=== PATIENT | male | born 1930 | race Caucasian/White ===

== ENCOUNTER 2018-12-18 15:45 | Inpatient (IN) ==
[2018-12-18] MEDS ORDERED: NS 1,000 ML IV ONE ×2 (16:04→19:24)
[2018-12-18] MEDS ORDERED: TYLENOL PO ONE (16:04)
--- NOTE | 2018-12-18 16:17 | Diag Imaging Result Doc PS360 ---
EXAM: CT HEAD W/O CONTRAST INDICATION: AMS TECHNIQUE: This exam was performed using automated exposure control, adjustment of mA or kV according to patient size, and/or use of iterative reconstruction technique. COMPARISON: 03/25/2018 FINDINGS: There is stable diffuse brain atrophy and suggestion of mild white matter microangiopathy, stable. There is incidental coarse falcine calcification anteriorly, stable. There is no definite acute infarct given the limited sensitivity of CT versus MRI. There is no discrete intracranial mass, mass effect, or intracranial hemorrhage. The surrounding soft tissues and bony structures are essentially unremarkable. IMPRESSION: Stable chronic changes as described. No definite acute intracranial pathology. Electronically signed by Yunior Scott 12/18/2018 4:14 PM
--- NOTE | 2018-12-18 16:32 | Diag Imaging Result Doc PS360 ---
EXAM: CHEST-PORTABLE HISTORY: cough TECHNIQUE: Single view of the chest was performed portably. COMPARISON: None. FINDINGS: Limited portable study. There is cardiomegaly. The aorta is tortuous. There is mild vascular congestion. There may be small effusions. Suspect platelike atelectasis at the bases. No focal consolidation is appreciated. IMPRESSION: Limited study. Possible small effusions and basilar atelectasis. Vascular congestion. Electronically signed by Minnie Moreira 12/18/2018 4:30 PM
[2018-12-18 17:26] LABS: BASO# 0.02 X1000 (0.0-0.2); BASO% 0.2 % (0.0-0.8); EOS# 0.02 X1000 (0.0-0.7); EOS% 0.2 % (0.0-10.0); HEMATOCRIT 40.9 % (42.0-52.0); HEMOGLOBIN 13.2 g/dL (14.0-18.0); IMM GRAN# 0.04 X1000 (0.0-0.04); IMM GRAN% 0.3 % (0.0-0.5); LYMPH# 0.35 X1000 (1.2-3.4); LYMPH% 2.9 % (20.5-51.1); MCH 30.1 PG (27-31); MCHC 32.3 g/dL (33-37); MCV 93.4 FL (81-99); MONO# 0.76 X1000 (0.11-0.59); MONO% 6.3 % (1.7-9.3); MPV 11.2 FL (7.4-10.4); NEUT# 10.91 X1000 (1.4-6.5); NEUT% 90.1 % (42.2-75.2); PLT 153 X1000 (130-400); RBC 4.38 XMIL (4.7-6.1); RDW 13.2 % (11.5-14.5)
[2018-12-18 17:36] LABS: URINE SOURCE CLEAN CATCH
[2018-12-18 17:40] LABS: BILIRUBIN URINE NEGATIVE (NEGATIVE); BLOOD URINE MODERATE (NEGATIVE); COLOR YELLOW; GLUCOSE URINE NEGATIVE (NEGATIVE); KETONE URINE NEGATIVE (NEGATIVE); LEUKOCYTES URINE MODERATE (NEGATIVE); NITRITE URINE NEGATIVE (NEGATIVE); PROTEIN URINE 30 mg/dL (NEGATIVE); SP GRAVITY URINE 1.006; TURBIDITY URINE CLEAR (CLEAR); UROBILINOGEN URINE NORMAL (NORMAL)
[2018-12-18 17:43] LABS: UR EPITHELIAL CELLS <10 /HPF (<10); URINE BACTERIA NEGATIVE /HPF; URINE RBC 20-40 /HPF (<10); URINE WBC 20-40 /HPF (<10)
[2018-12-18 17:45] LABS: ALB/GLOB RATIO 1.4; ALBUMIN 3.5 g/dL (3.5-5.0); CALCIUM 9.1 mg/dL (8.8-10.2); CREATININE 1.7 mg/dL (0.7-1.2); POTASSIUM 3.8 mmol/L (3.5-5.1); TOTAL BILIRUBIN 0.3 mg/dL (0.20-1.00)
[2018-12-18 17:52] LABS: INR 2.85
[2018-12-18] MEDS ORDERED: ROCEPHIN 1 GM in NS 50 ML IV ONE (18:01)
[2018-12-18] MEDS ORDERED: MERREM 1 GM in NS 50 ML IV ONE (18:02)
[2018-12-18 18:13] LABS: URINE CASTS NONE SEEN; URINE CRYSTALS NONE SEEN; URINE SMALL ROUND CELLS NONE SEEN; URINE YEAST NONE SEEN
--- NOTE | 2018-12-18 18:17 | ED EKG INTERP ---
This chart was entered by Stephanie Walker Scribe, acting as scribe for Latonia Willett MD. EKG Interpretation - EKG Time of EKG reading by physician:: 17:59 EKG Read and Signed by:: Latonia Willett EKG Interpretation (*Must complete 3 of following elements*): Abnormal Rate: 74 Rhythm: sinus with 1st degree AV block [place]: normal QRS: RBB NE Interval: normal ST Wave: normal Attestation - Physician/ JACINTO Attestation Patient care was provided by Advanced Practice Provider:: No The physician spent face to face time with patient:: Yes Advanced Practice Provider documentation review:: Supervising physician onsite and consulted in the evaluation and care of this patient. The physician did have a face to face encounter with the patient. This chart was documented by the indicated scribe, (Stephanie Walker, [place]) and accurately reflects the services I performed and decisions made by me, Latonia Willett MD, as attested by the provider's signature.
--- NOTE | 2018-12-18 18:42 | PROVIDER DOCUMENTATION ---
This chart was entered by Eugenie Herrera Scribe, acting as scribe for Latonia Willett MD. HPI-Neurological Disorder - General Chief Complaint: SEPSIS ALERT - D Stated Complaint: AMS Time Seen by Provider: 12/18/18 16:09 Source: family (son), EMS Allergies/Adverse Reactions: Patient Allergies Allergy/AdvReac Type Severity Reaction Status Date / Time atorvastatin [From Lipitor] Allergy Unknown Verified 03/25/18 20:24 pioglitazone [From Actos] Allergy Unknown Verified 03/25/18 20:24 Sulfa (Sulfonamide Allergy ANAPHYLAXIS Verified 03/25/18 20:24 Antibiotics) codeine AdvReac VOMITING Verified 12/18/18 16:36 Home Medications: Home Medication List Medication Instructions Recorded Confirmed Last Taken Type Hydrocodone/APAP 5 mg/325 mg 1 tab PO Q6H PRN PRN #12 tab 03/25/18 Unknown Rx [[place]-5] Tamsulosin [Flomax] 0.4 mg PO DAILY 03/25/18 03/25/18 03/25/18 15:00 History - History of Present Illness-Neuro Nature of Presenting Problem: [id number] presents to ED by EMS cc AMS, confusion and trouble walking since this morning. EMS reports that the staff at assisted living where the pt resides told them that pt was at baseline around 2pm and ambulated fine this morning but then around 3:30pm he could no longer ambulate and seemed very confused. Pt son is at bedside and reports pt just finished ABT for a UTI. Pt has hx of Dementia, Afib and thyroid disease. Pt is nontoxic in appearance. Onset/Duration: reports: 1-3 hours ago Timing: reports: still present, constant Context: reports: fever Character of Altered Mental Status: reports: confused Any recent trauma/injury?: reports: none Character of Deficits: reports: decreased ability to stand Cognitive Baseline: alert but confused Gait Baseline: uses a walker Associated Symptoms: reports: trouble walking Similar Symptoms Previously?: No Recently seen or treated by another doctor?: No Review of Systems - Adult - REVIEW OF SYSTEMS - ADULT Constitutional: reports: see HPI, fever, fatique. denies: chills Eyes: reports: no symptoms reported Ears, Nose, Mouth & Throat: reports: no symptoms reported Cardiovascular: reports: no symptoms reported Respiratory: reports: no symptoms reported Gastrointestinal: reports: no symptoms reported Genitourinary: reports: no symptoms reported Musculoskeletal: reports: no symptoms reported Integumentary: reports: no symptoms reported Neurological: reports: see HPI, other (AMS) Psychiatric: reports: no symptoms reported Endocrine: reports: no symptoms reported Hematologic/Lymphatic: reports: no symptoms reported Allergic/Immunologic: reports: no symptoms reported All Other Systems: Reviewed and Negative Past History - Adult - PAST MEDICAL HISTORY-ADULT Review of Records: reports: Nursing Assessment Review, Medications Reviewed, Social history reviewed & non-contributory. Major Childhood Illnesses: reports: denies history Cardiovascular: reports: denies history Respiratory: reports: denies history Gastrointestinal: reports: denies history Obstetrical/Gynecological: reports: denies history Genitourinary: reports: denies history Musculoskeletal: reports: denies history Neurological: reports: denies history Endocrine/Immune: reports: denies history Other Conditions: reports: denies history - IMMUNIZATION STATUS Childhood Immunizations: See Nurse Assessment Flu Vaccine: See Nurse Assessment - FAMILY HISTORY Family History: reviewed, not pertinent - SOCIAL HISTORY Smoking: denies Physical Exam- Neurological - Physical Exam-Neuro Initial Vital Signs Reviewed: Yes General Appearance: appears well, alert, no apparent distress. negative: anxious, combative Eye Exam: bilateral eye: normal inspection, PERRL (2mm reactive) HENMT: normocephalic/atraumatic, moist mucous membranes, normal ENT inspection, TMs normal, pharynx normal. negative: angioedema, dental decay, hearing deficit Head Injury: no evidence of injury. negative: active bleeding, Chaudhry's Sign, contusions, ecchymosis, flap, lacerations, raccoon eyes, swelling, tenderness Neck: non-tender, full range of motion, supple, normal inspection. negative: Brudzinski's sign, carotid bruit, C-spine tenderness Respiratory: chest non-tender, lungs clear, normal breath sounds, no pleuratic chest pain, no respiratory distress, no accessory muscle use. negative: crackles, rales, rhonchi, stridor, wheezing Cardiovascular: normal peripheral pulses, regular rate, rhythm, no edema, no gallop, no JVD, no murmur. negative: bradycardia, tachycardia Abdominal Exam: normal bowel sounds, non tender, soft. negative: distended, guarding, rigid, rebound, tenderness Lymphatic: no adenopathy. 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 negative: facial droop, facial paresthesias, facial weakness Coordination/Gait: normal finger to nose, normal gait. negative: ABN nose to finger (R), ABN nose to finger (L) Motor/Sensory: no motor deficit, no sensory deficit, no pronator drift. 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 negative: facial droop, focal weakness Integumentary: normal color, normal turgor, warm/dry. negative: cyanosis, diaphoresis, erythema, jaundice Psych/Mental Status: negative: anxious, disheveled, depressed affect - Glascow Coma Scale Best Eye Response: (4) open spontaneously Best Motor Response: (6) obeys commands Progress - PLAN OF CARE/RESULTS Progress/Plan/Lab Results: Vital Signs - 8 hr 12/18/18 16:28 12/18/18 16:36 12/18/18 16:40 Temperature 102.9 F H Pulse Rate Respiratory Rate Blood Pressure O2 Sat by Pulse Oximetry 97 97 12/18/18 16:50 12/18/18 16:52 12/18/18 16:53 Temperature 102.9 F H Pulse Rate 89 88 88 Respiratory Rate 8 L 19 19 Blood Pressure 140/58 150/90 O2 Sat by Pulse Oximetry 96 97 97 12/18/18 17:00 12/18/18 17:03 12/18/18 17:10 Temperature Pulse Rate 88 90 87 Respiratory Rate 21 15 25 H Blood Pressure 150/65 O2 Sat by Pulse Oximetry 98 98 97 Laboratory Results - last 24 hr 12/18/18 12/18/18 12/18/18 16:24 16:28 16:28 WBC 12.10 H RBC 4.38 L Hgb 13.2 L Hct 40.9 L MCV 93.4 MCH 30.1 MCHC 32.3 L RDW Std Deviation 13.2 Plt Count 153 MPV 11.2 H Immature Gran % (Auto) 0.3 Neut % (Auto) 90.1 H Lymph % (Auto) 2.9 L [place] % (Auto) 6.3 Eos % (Auto) 0.2 Baso % (Auto) 0.2 Immature Gran # (Auto) 0.04 Neut # (Auto) 10.91 H Lymph # (Auto) 0.35 L [place] # (Auto) 0.76 H Eos # (Auto) 0.02 Baso # (Auto) 0.02 PT INR PTT (Actin FS) Sodium 140 Potassium 3.8 Chloride 102 Carbon Dioxide 23 L Anion Gap 15 BUN 33 H Creatinine 1.7 H Estimated GFR/1.73 m2 38 BUN/Creatinine Ratio 19 Glucose 191 H POC Glucose Calculated Osmolality 292 Calcium 9.1 Total Bilirubin 0.30 AST 16 ALT 14 Alkaline Phosphatase 119 Total Protein 6.0 L Albumin 3.5 Globulin 2.5 Albumin/Globulin Ratio 1.4 Plasma Lactate 2.0 Urine Source Urine Color Urine Turbidity Urine pH Ur Specific [place] Urine Protein Ur Glucose (Stick) Ur Ketones (Stick) Urine Blood Urine Nitrite Urine Bilirubin Urobilinogen Dipstick Urine Leukocytes Urine WBC (Auto) Urine RBC (Auto) U Epithel Cells (Auto) Urine Bacteria (Auto) Urine Crystals Small Round Cells Urine Casts Urine Yeast-like Cells 12/18/18 12/18/18 12/18/18 16:28 16:28 17:17 WBC RBC Hgb Hct MCV MCH MCHC RDW Std Deviation Plt Count MPV Immature Gran % (Auto) Neut % (Auto) Lymph % (Auto) [place] % (Auto) Eos % (Auto) Baso % (Auto) Immature Gran # (Auto) Neut # (Auto) Lymph # (Auto) [place] # (Auto) Eos # (Auto) Baso # (Auto) PT 32.0 H INR 2.85 PTT (Actin FS) 37.8 Sodium Potassium Chloride Carbon Dioxide Anion Gap BUN Creatinine Estimated GFR/1.73 m2 BUN/Creatinine Ratio Glucose POC Glucose Calculated Osmolality Calcium Total Bilirubin AST ALT Alkaline Phosphatase Total Protein Albumin Globulin Albumin/Globulin Ratio Plasma Lactate Urine Source CLEAN CATCH Urine Color YELLOW Urine Turbidity CLEAR Urine pH 5.0 Ur Specific [place] 1.006 Urine Protein 30 A Ur Glucose (Stick) NEGATIVE Ur Ketones (Stick) NEGATIVE Urine Blood MODERATE A Urine Nitrite NEGATIVE Urine Bilirubin NEGATIVE Urobilinogen Dipstick NORMAL Urine Leukocytes MODERATE A Urine WBC (Auto) 20-40 A Urine RBC (Auto) 20-40 A U Epithel Cells (Auto) <10 Urine Bacteria (Auto) NEGATIVE Urine Crystals NONE SEEN Small Round Cells NONE SEEN Urine Casts NONE SEEN Urine Yeast-like Cells NONE SEEN 12/18/18 17:27 WBC RBC Hgb Hct MCV MCH MCHC RDW Std Deviation Plt Count MPV Immature Gran % (Auto) Neut % (Auto) Lymph % (Auto) [place] % (Auto) Eos % (Auto) Baso % (Auto) Immature Gran # (Auto) Neut # (Auto) Lymph # (Auto) [place] # (Auto) Eos # (Auto) Baso # (Auto) PT INR PTT (Actin FS) Sodium Potassium Chloride Carbon Dioxide Anion Gap BUN Creatinine Estimated GFR/1.73 m2 BUN/Creatinine Ratio Glucose POC Glucose 153 H Calculated Osmolality Calcium Total Bilirubin AST ALT Alkaline Phosphatase Total Protein Albumin Globulin Albumin/Globulin Ratio Plasma Lactate Urine Source Urine Color Urine Turbidity Urine pH Ur Specific [place] Urine Protein Ur Glucose (Stick) Ur Ketones (Stick) Urine Blood Urine Nitrite Urine Bilirubin Urobilinogen Dipstick Urine Leukocytes Urine WBC (Auto) Urine RBC (Auto) U Epithel Cells (Auto) Urine Bacteria (Auto) Urine Crystals Small Round Cells Urine Casts Urine Yeast-like Cells Orders Category Date Time Status CHEST-PORTABLE [RAD] Stat Exams 12/18/18 16:[address] HEAD W/O CONTRAST [CT] Stat Exams 12/18/18 15:56 Completed BLOOD CULTURE [BLDCUL] Stat Lab 12/18/18 16:37 Ordered CBC WITH DIFF [HEME] Stat Lab 12/18/18 16:28 Completed COMPREHENSIVE METABOLIC PANEL [CHEM] Stat Lab 12/18/18 16:28 Completed LACTATE, PLASMA [CHEM] Stat Lab 12/18/18 16:24 Completed PROTIME WITH INR [COAG] Stat Lab 12/18/18 16:28 Completed PTT [COAG] Stat Lab 12/18/18 16:28 Completed UA NIMS W/REFLEX CULT [URINALYSIS] Stat Lab 12/18/18 17:17 Completed URINE CULTURE [RM] Routine Lab 12/18/18 18:36 Received URINE MANUAL MICROSCOPIC [URINALYSIS] Stat Lab 12/18/18 17:17 Completed 0.9% Sodium Chloride Inj [Ns] 1,000 ml Med 12/18/18 16:04 Discontinued IV Wide Open mls/hr Acetaminophen [Tylenol] Med 12/18/18 16:04 Discontinued 650 mg PO NOW ONE CefTRIAXONE [Rocephin] 1 gm Med 12/18/18 18:01 Discontinued 0.9% Sodium Chloride Inj [Ns] 50 ml IV NOW Meropenem [Merrem] 1 gm Med 12/18/18 18:02 Active 0.9% Sodium Chloride Inj [Ns] 50 ml IV NOW Pulse Oximetry Stat Oth 12/18/18 16:05 Active Result Diagrams: 12/18/18 16:28 12/18/18 16:28 - XRAY 1 XRAY: Bilateral XRAY Study: Chest Impression: See EMR Report (IMPRESSION: Limited study. Possible small effusions and basilar atelectasis. Vascular congestion. Electronically signed by Minnie Moreira 12/18/2018 4:30 PM) - CT/MRI 1 CT Study: Head Impression: See EMR Report (IMPRESSION: Stable chronic changes as described. No definite acute intracranial pathology. Electronically signed by Yunior Scott 12/18/2018 4:14 PM) - CONSULTS/PCP/HOSPITALIST Notification #1 *Consult/PCP/Hospitalist*: D/W ANIKA MORTENSEN Time Discussed: 18:00 Consult Disposition: Admit Departure - Departure Date of Disposition Decision: 12/18/18 Time of Disposition Decision: 18:00 DIAGNOSIS: UTI (urinary tract infection), Sepsis Disposition: ADMITTED INPATIENT 09 Certified Medical Emergency: Emergent Condition: Stable Additional Freetext Instructions: ED Follow Up Instructions: You have been treated by a care provider in the Emergency Department. These instructions are being provided to you so you can have an understanding of how to care for yourself upon discharge. Upon discharge from the Emergency Department, you are responsible for making arrangements for follow-up care by a physician of your choice. Take all prescribed medications as directed. Return to the Emergency Department immediately for any new or worsening symptoms. You may call the Physician Referral phone number at [phone] to obtain a list of Physicians who are taking new patients. Referrals and Follow-Ups: Samuel Vazquez [Primary Care Provider] - - Critical Care Note This patient required my direct & personal management of CC.: No Attestation - Physician/ JACINTO Attestation Patient care was provided by Advanced Practice Provider:: No The physician spent face to face time with patient:: Yes Advanced Practice Provider documentation review:: Supervising physician onsite and consulted in the evaluation and care of this patient. The physician did have a face to face encounter with the patient. This chart was documented by the indicated scribe, (Eugenie Herrera Scribe) and accurately reflects the services I performed and decisions made by me, Latonia Willett MD, as attested by the provider's signature.
[2018-12-18] MEDS ORDERED: ZOFRAN IV PRN (19:02)
[2018-12-18] MEDS ORDERED: TYLENOL PO PRN (19:02)
[2018-12-18] MEDS ORDERED: ZOSYN 3.375 GM in NS 50 ML IV SCH (19:15)
--- NOTE | 2018-12-18 19:39 | HISTORY AND PHYSICAL ---
ADDENDUM: Mr. Chung is a resident of [facility] for the past year and a half. Follows up with multiple physicians mainly in [place]. He was brought in today because the son was called because Mr. Chung was confused and remarkably weak to help himself and had a temperature of 101.9 degrees. Recently Mr. Chung had been treated for UTI in September. He was given a prescription for amoxicillin and just the 6th of last month, he was given a prescription for cefdinir. Somewhere in late September, he was also given a prescription for cephalexin. Upon presenting to the emergency department, his vitals seems to have been stable, but his temperature was 101.2. His urine is also pathological. PHYSICAL EXAMINATION: GENERAL: Positive for a BMI of 34.1. LUNGS: Were clear. CARDIOVASCULAR: Regular rate and rhythm. ABDOMEN: Is soft. EXTREMITIES: There are bilateral scars on the knees suggestive of previous bilateral knee replacement surgeries. Maybe a trace of pedal edema. LABORATORIES: I have also reviewed his lab work. His WBC is 12.10. Hemoglobin and platelet count are within normal range. Creatinine is 1.7, but the patient is noted to have CKD stage III and urine is slightly abnormal. ASSESSMENT: 1. Altered mental status associated with elevated temperature and mildly elevated white cell count, which would be suggestive of an infectious etiology. So far, CT scan is unremarkable for any acute disease and patient has recently been treated for urinary tract infection. Chest x-ray did not show any pneumonia. It is reasonable to assume that this is a partially treated urinary tract infection or a new urinary tract infection. Because the patient has been on cefdinir, cephalexin and amoxicillin recently, I am concerned there could be an extended spectrum beta-lactamases, so I will use carbapenem at least for now until we have the culture reports 2. Chronic kidney disease, stage 3. 3. History of Alzheimer's dementia. 4. History of atrial fibrillation. The patient is on amiodarone and also Coumadin for stroke prophylaxis. 5. Benign prostatic hyperplasia on tamsulosin. The patient will be started on that. PLAN: In general, Mr. Chung will be admitted to the medical floor. Blood cultures have been done. Urine cultures have also been done. He will be started on broad-spectrum IV antibiotics which will be tailored once we have the culture results. We will also continue to manage all his other comorbidities. Please refer to the details of history and physical dictated by the nurse practitioner in the chart. cc: Louis Sorenson MD
--- NOTE | 2018-12-18 19:59 | HISTORY AND PHYSICAL ---
PRIMARY CARE PROVIDER: Dr. Luis Fernando Vazquez. CHIEF COMPLAINT: Altered mental status and burning with urination and back pain. HISTORY OF PRESENT ILLNESS: Mr. Saurabh Chung is an 89-year-old, male, with a medical history of Alzheimer's dementia, paroxysmal chronic atrial fibrillation, hypothyroidism, anxiety, depression, and enlarged prostate who was most recently treated for urinary tract infection in early November. Apparently, he has still been having issues with burning on urination and lower back pain. He apparently started running fever today a with confused actions that were worse than his normal Alzheimer's dementia. Reported fever of 101.9 at the [facility] in [place] where he lives. Apparently, he was up and sit in a chair but then was not strong enough to get out of it. He was brought here, still has fever and still showing signs of urinary tract infection. So, we will admit for failed outpatient treatment of urinary tract infection. PAST MEDICAL HISTORY: 1. Paroxysmal atrial fibrillation. It is also chronic. 2. Hypothyroidism. 3. Hypertension. 4. Vitamin D deficiency. 5. GERD. 6. Chronic constipation. 7. Anxiety, depression. 8. Alzheimer's dementia. 9. Borderline diabetes mellitus. 10. Hyperlipidemia. 11. BPH. 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 SURGICAL HISTORY: 1. Septoplasty. 2. Arthroscopic knee. 3. L3-L4 back surgery. 4. Hemorrhoidectomy. 5. Intestinal blockage. 6. Prostatectomies. 7. Left total left knee replacement. 8. Total right knee replacement. 9. Cataract surgery, both eyes. 10. Fistula repair. 11. Colonoscopy and endoscopy. Both last were in October of 2016. SOCIAL HISTORY: Denies tobacco, alcohol or illicit drug use. Currently lives at the [facility] in [place]. Uses a walker for ambulation. FAMILY HISTORY: Mother had colon cancer. Father had dementia. ALLERGIES: 1. Codeine. 2. Sulfa drugs. 3. Actos. 4. Lipitor. HOME MEDICATIONS: 1. Amiodarone 200 mg p.o. daily. 2. Colace 100 mg p.o. twice daily. 3. Coumadin 3.75 mg p.o. every Tuesday, Tuesday, , Tuesday. 4. Coumadin 7.5 mg p.o. every Tuesday, Tuesday, Tuesday. 5. Flomax 0.4 mg p.o. daily. 6. Galantamine 12 mg p.o. twice daily. 7. Lasix 40 mg p.o. daily. 8. Synthroid 150 mcg p.o. daily. 9. Losartan potassium 50 mg p.o. daily. 10. Namenda 5 mg p.o. twice daily. 11. Ranitidine 300 mg p.o. daily. 12. Seroquel 12.5 mg p.o. at 2 p.m. daily. 13. Vitamin B12 1000 mcg p.o. daily. 14. Vitamin D3 2000 units p.o. daily. REVIEW OF SYSTEMS: Fourteen point review of systems are complete and all are negative, except for those mentioned above in HPI. He does complain of lower back pain along with the suprapubic tenderness and burning with urination. PHYSICAL EXAMINATION: VITAL SIGNS: Temperature 101.2 degrees. Heart rate 70, respiratory rate 24, blood pressure 95/51, O2 saturation 96% on room Mr. Saurabh Chung is an 88-year-old male, who is in no acute distress. He is pleasantly confused. Answers some questions appropriately. HEENT: Atraumatic, normocephalic. Pupils equal, round, reactive to light. Extraocular movements intact. Mucous membranes are dry. NECK: Trachea midline. CARDIOVASCULAR: S1, S2. Regular rate and rhythm. No rubs, gallops, murmurs. He does have about 1 to 2+ lower extremity pitting edema, +2 dorsalis and radial pulses. Negative for JVD or carotid bruits. PULMONARY: Clear to auscultate. Bilateral breath sounds. No accessory muscle use or work of breathing noted. GI: Soft, nontender, nondistended. Positive bowel sounds x4, but there was some mild suprapubic tenderness with palpation. EXTREMITIES: Decreased range of motion and strength. All equal. NEUROLOGIC: Oriented to name only. Otherwise, pleasantly confused. Follows commands. SKIN: Warm, dry, intact except for the left hand. He has abrasions from where he is constantly scratching top of his left hand. A large bandage in place at this time. LABORATORY DATA: White blood cells 12,000, hemoglobin 13, hematocrit 40, platelet count 153,000. INR 2.85, PTT 37.8. Sodium 140, potassium 3.8, BUN 33, creatinine is 1.7, glucose 191, calcium 9.1, bilirubin 0.30. AST 16, ALT 14. Protein 6, albumin 3.5, serum lactate 2.0. Urinalysis 30 protein, moderate blood, moderate leukocytes, 20 to 40 white blood cells, negative for bacteria. IMAGING: Head CT: Stable chronic changes; nothing acute. Chest x-ray: Small effusions. Bibasilar atelectasis. Some vascular congestion. EKG: Normal sinus rhythm with a first-degree AV block, rate was 74. ASSESSMENT/PLAN: 1. Failed outpatient treatment of urinary tract infection. He has had Cefdinir and so we will do meropenem to treat. Check on the culture for further sensitivities. 2. Chronic history of atrial fibrillation. This is paroxysmal. He is currently sinus rhythm with a first-degree AV block. We will continue his Coumadin and daily INRs. 3. Hypothyroidism. Continue Synthroid. 4. Acute kidney injury. He is on Lasix at home. We will hold that. He has a little bit of a low blood pressure. We will hold his antihypertensives for now. He did get fluids, but we will monitor for fluid volume overload. 5. Hypertension. Again we will hold the antihypertensive. 6. Gastroesophageal reflux disease. Continue ranitidine. 7. Chronic constipation. Continue scheduled Colace. 8. Diabetes mellitus type 2. We will do a diabetic diet. We will do pattern blood glucoses and A1c. He is hyperglycemic at this time. 9. Benign prostatic hyperplasia. Continue Flomax. 10. Deep venous thrombosis prophylaxis. He is on Coumadin and that will be continued. Dictated by BALBINA Low for Louis Sorenson MD cc: BALBINA Low MD [facility]
[2018-12-18] MEDS ORDERED: COLACE PO SCH (21:31)
[2018-12-18] MEDS ORDERED: GALANTAMINE HBR 12 MG PO SCH (21:31)
[2018-12-18] MEDS ORDERED: NAMENDA PO SCH (21:31)
[2018-12-18] MEDS ORDERED: COUMADIN PO SCH ×2 (21:31)
[2018-12-18] MEDS: COUMADIN PO SCH (23:05)
[2018-12-18] MEDS: RAZADYNE PO SCH (23:05)
[2018-12-18] MEDS: COLACE PO SCH (23:06)
[2018-12-18] MEDS: HUMULIN R SUBQ SCH (23:06)
[2018-12-18] MEDS: NAMENDA PO SCH (23:06)
[2018-12-19] MEDS: MERREM 500 MG in NS 50 ML IV SCH ×3 (03:03→18:06)
[2018-12-19 06:04] LABS: HEMOGLOBIN A1C 5.5 % (4.8-6.0)
[2018-12-19 06:08] LABS: INR 3.37; PROTIME 36.4 Seconds (11.0-16.0)
[2018-12-19 06:09] LABS: BASO# 0.02 X1000 (0.0-0.2); BASO% 0.1 % (0.0-0.8); EOS# 0.06 X1000 (0.0-0.7); EOS% 0.4 % (0.0-10.0); HEMATOCRIT 35.2 % (42.0-52.0); HEMOGLOBIN 11.2 g/dL (14.0-18.0); IMM GRAN# 0.04 X1000 (0.0-0.04); IMM GRAN% 0.3 % (0.0-0.5); LYMPH# 1.53 X1000 (1.2-3.4); LYMPH% 10.6 % (20.5-51.1); MCH 29.9 PG (27-31); MCHC 31.8 g/dL (33-37); MCV 94.1 FL (81-99); MONO# 1.33 X1000 (0.11-0.59); MONO% 9.2 % (1.7-9.3); MPV 11.2 FL (7.4-10.4); NEUT# 11.52 X1000 (1.4-6.5); NEUT% 79.4 % (42.2-75.2); PLT 146 X1000 (130-400); RBC 3.74 XMIL (4.7-6.1); RDW 13.2 % (11.5-14.5)
[2018-12-19 06:11] LABS: PTT 66.5 Seconds (22.3-41.8)
[2018-12-19 06:26] LABS: ALB/GLOB RATIO 1.1; ALBUMIN 2.9 g/dL (3.5-5.0); CALCIUM 8.7 mg/dL (8.8-10.2); CREATININE 1.6 mg/dL (0.7-1.2); MAGNESIUM 1.8 mg/dL (1.5-2.7); POTASSIUM 3.3 mmol/L (3.5-5.1); TOTAL BILIRUBIN 0.48 mg/dL (0.20-1.00); TOTAL PROTEIN 5.6 g/dL (6.3-8.3)
[2018-12-19] MEDS: SYNTHROID PO SCH (06:46)
[2018-12-19] MEDS: HUMULIN R SUBQ SCH ×4 (06:46→21:42)
--- NOTE | 2018-12-19 07:18 | EKG Report ---
Test Performed on : 12/19/2018 07:12:02 AM Test Reason : afib hx Blood Pressure : / mmHG Vent. Rate : 055 BPM Atrial Rate : 055 BPM P-R Int : 244 ms QRS Dur : 158 ms QT Int : 466 ms P-R-T Axes : 044 026 -22 degrees QTc Int : 445 ms Sinus bradycardia. with 1st degree AV block. Right bundle branch block Abnormal ECG When compared with ECG of 18-DEC-2018 17:58, (Unconfirmed) No significant change was found Confirmed by Barry Vick MD ([id number]) on 12/19/2018 9:23:53 PM
--- NOTE | 2018-12-19 07:56 | EKG Report ---
Test Performed on : 12/18/2018 5:58:06 PM Test Reason : ED. NO EKG ORDER FOR MUSE Blood Pressure : / mmHG Vent. Rate : 074 BPM Atrial Rate : 074 BPM P-R Int : 212 ms QRS Dur : 154 ms QT Int : 416 ms P-R-T Axes : 015 052 -11 degrees QTc Int : 461 ms Sinus rhythm. with 1st degree AV block. Right bundle branch block Abnormal ECG No previous ECGs available Unconfirmed Result
[2018-12-19] MEDS: COZAAR PO SCH (08:29)
[2018-12-19] MEDS: CORDARONE PO SCH (08:29)
[2018-12-19] MEDS: NAMENDA PO SCH ×2 (08:29→21:42)
[2018-12-19] MEDS: VITAMIN B-12 PO SCH (08:29)
[2018-12-19] MEDS: RAZADYNE PO SCH ×2 (08:29→21:42)
[2018-12-19] MEDS: COLACE PO SCH ×2 (08:29→21:42)
[2018-12-19] MEDS: VITAMIN D PO SCH (08:29)
[2018-12-19] MEDS: FLOMAX PO SCH (08:29)
[2018-12-19] MEDS ORDERED: CYANOCOBALAMIN 1000 MCG PO SCH (09:00)
[2018-12-19] MEDS ORDERED: RANITIDINE HCL PO SCH (09:00)
[2018-12-19] MEDS ORDERED: SYNTHROID PO SCH (09:00)
[2018-12-19] MEDS ORDERED: CORDARONE PO SCH (09:00)
[2018-12-19] MEDS ORDERED: SEROQUEL PO SCH (09:00)
[2018-12-19] MEDS ORDERED: FLOMAX PO SCH (09:00)
[2018-12-19] MEDS ORDERED: CHOLECALCIFEROL 2000 UNIT PO SCH (09:00)
[2018-12-19] MEDS: ZANTAC PO SCH (10:35)
[2018-12-19] MEDS: SEROQUEL PO SCH (13:44)
--- NOTE | 2018-12-19 14:02 | PROGRESS NOTE ---
DATE: 12/19/2018 SUBJECTIVE: This morning, Mr. Chung refers to be feeling a whole lot better. More alert, more conversational and oriented. The [id number] was at the bedside at the time of the encounter. OBJECTIVE: Vital signs: Blood pressure is 122/56, pulse of 58, respirations 16, temperature is 97.9 degrees. The patient is saturating 100% on nasal cannula 2 L. General: Mr. Chung is an 88- year-old, elderly male. He was in bed, in no distress. Mucosa is pink and moist. Anicteric and acyanotic. Neck: Supple. Chest: Clear to auscultation. No crepitations. No rhonchi. Cardiovascular: Regular rate and rhythm. There are no murmurs, no rubs, no gallops. GI: Abdomen is soft, minimally distended, but nontender. Bowel sounds are present. Extremities: About trace pedal edema. There are also some bilateral scars on the knees from previous knee replacement surgery. 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 LABORATORY DATA: WBC is 14.50, hemoglobin is 13.2, platelet count of 146,000. The patient's INR was 3.37. Creatinine is slightly down to 1.6, potassium is 3.3. Urine culture is showing gram- negative gisela. CURRENT MEDICATIONS: Have all been reviewed and no changes. ASSESSMENT AND PLAN: 1. Altered mental status, most likely due to urinary tract infection. Mentation has significantly improved. 2. Gram-negative gisela urinary tract infection. The patient was started on meropenem because of concern for ESBL since the patient has been on multiple antibiotics recently. We will readjust the antimicrobial therapy once we know the ID and sensitivity. 3. Chronic kidney disease stage IIIA noted. 4. History of Alzheimer's dementia. Stable. 5. Atrial fibrillation. Currently rate controlled. Patient is on amiodarone. 6. Benign prostatic hypertrophy. 7. Coumadin anticoagulation therapy for stroke prophylaxis. The patient's INR is relatively higher this morning at 3.37. We are going to withhold today's Coumadin. cc: Louis Sorenson MD
[2018-12-19] MEDS ORDERED: COUMADIN PO SCH (21:00)
[2018-12-20] MEDS: MERREM 500 MG in NS 50 ML IV SCH ×2 (01:49→09:08)
[2018-12-20] MEDS: HUMULIN R SUBQ SCH ×4 (06:04→21:00)
[2018-12-20] MEDS: SYNTHROID PO SCH (06:14)
[2018-12-20 08:33] LABS: BASO# 0.03 X1000 (0.0-0.2); BASO% 0.3 % (0.0-0.8); EOS# 0.17 X1000 (0.0-0.7); EOS% 1.6 % (0.0-10.0); HEMATOCRIT 34.8 % (42.0-52.0); HEMOGLOBIN 10.9 g/dL (14.0-18.0); IMM GRAN# 0.07 X1000 (0.0-0.04); IMM GRAN% 0.7 % (0.0-0.5); LYMPH# 1.38 X1000 (1.2-3.4); LYMPH% 13.1 % (20.5-51.1); MCH 29.7 PG (27-31); MCHC 31.3 g/dL (33-37); MCV 94.8 FL (81-99); MONO# 1.18 X1000 (0.11-0.59); MONO% 11.2 % (1.7-9.3); MPV 11.6 FL (7.4-10.4); NEUT# 7.69 X1000 (1.4-6.5); NEUT% 73.1 % (42.2-75.2); PLT 146 X1000 (130-400); RBC 3.67 XMIL (4.7-6.1); RDW 13.1 % (11.5-14.5); WBC 10.52 X1000 (4.8-10.8)
[2018-12-20 08:48] LABS: ALBUMIN 2.8 g/dL (3.5-5.0); CALCIUM 8.5 mg/dL (8.8-10.2); CREATININE 1.6 mg/dL (0.7-1.2); PHOSPHORUS 2.4 mg/dL (2.7-4.5); POTASSIUM 3.5 mmol/L (3.5-5.1)
[2018-12-20 08:49] LABS: INR 3.77; PROTIME 39.8 Seconds (11.0-16.0)
[2018-12-20] MEDS: VITAMIN B-12 PO SCH (09:07)
[2018-12-20] MEDS: NAMENDA PO SCH ×2 (09:07→21:00)
[2018-12-20] MEDS: COLACE PO SCH ×2 (09:07→21:00)
[2018-12-20] MEDS: ZANTAC PO SCH (09:07)
[2018-12-20] MEDS: CORDARONE PO SCH (09:07)
[2018-12-20] MEDS: RAZADYNE PO SCH ×2 (09:08→21:00)
[2018-12-20] MEDS: VITAMIN D PO SCH (09:08)
[2018-12-20] MEDS: FLOMAX PO SCH (09:08)
[2018-12-20] MEDS: COZAAR PO SCH (09:08)
[2018-12-20] MEDS ORDERED: MIRALAX PO SCH (10:00)
[2018-12-20] MEDS: AUGMENTIN PO SCH ×2 (11:58→21:00)
[2018-12-20] MEDS: SEROQUEL PO SCH (15:00)
[2018-12-20 19:44] VITALS: BP 176/73
[2018-12-20] MEDS: COUMADIN PO SCH (20:59)
--- NOTE | 2018-12-20 21:52 | DISCHARGE SUMMARY ---
ADMISSION DATE: 12/18/2018 DISCHARGE DATE: DISPOSITION: Back to assisted living. CONSULTATIONS DURING THIS ADMISSION: None. IMAGING STUDIES OF SIGNIFICANCE: 1. CT scan of the head showed stable chronic changes. 2. Chest x-ray showed possible small pleural effusions, vascular congestion. ADMISSION DIAGNOSES: 1. Altered mental status. 2. Chronic kidney disease stage III. 3. History of Alzheimer. 4. History of atrial fibrillation. DIAGNOSES AT THE TIME OF DISCHARGE: 1. Altered mental status secondary to urinary tract infection. 2. Klebsiella pneumoniae urinary tract infection. 3. Chronic kidney disease stage IIIA. 4. History of Alzheimer's dementia. 5. Atrial fibrillation, currently rate controlled. 6. Benign prostatic hypertrophy. 7. Coumadin anticoagulation therapy. DISCHARGE MEDICATIONS: 1. Tamsulosin 0.4 p.o. daily. 2. Amiodarone 200 mg daily. 3. Colace 100 mg b.i.d. 4. Lasix 40 mg p.o. daily. 5. Galantamine 12 mg b.i.d. 6. Levothyroxine 150 mcg p.o. daily. 7. Losartan 50 mg p.o. daily. 8. Seroquel 12.5 p.o. daily. 9. Coumadin 3.75 Tuesday, Tuesday, , 7.5 on Tuesday, , and Tuesday. 10. Augmentin 875 p.o. q.12. PRESENTING COMPLAINT: Altered mental status, burning with urination, and back pain. HISTORY OF PRESENTING COMPLAINT: Mr. Chung is an 88-year-old, elderly gentleman, with history of dementia, paroxysmal atrial fibrillation, hypothyroid, lives at an assisted living, was brought to the emergency department because of being confused and fever with a temperature of 101.9 degrees. Upon presentation, he was evaluated. He had a temperature of 102.9 degrees at one point here in the hospital. He was admitted for further medical care. HOSPITAL COURSE: Mr. Chung was started on broad-spectrum IV antibiotics and gentle IV fluids. His blood cultures came back negative, but his urine culture came back positive for Klebsiella pneumoniae. During the hospital course, Mr. Chung continued to improve. His mentation got completely stabilized back to baseline. This morning, his urine culture has shown Klebsiella pneumoniae, which is sensitive to almost everything. We are going to put him on Augmentin. The patient could have also used Levaquin, but he is on so many other medications that have interaction with that. This morning, his vitals, blood pressure is 163/68, pulse of 53, respirations 20, temperature is 98.6 degrees. He is doing a lot better. He is back to his baseline. His physical exam is unremarkable, except for some mild wheezing in his lungs. His IV fluid has been discontinued. The patient also has been evaluated yesterday by Physical Therapy. We think he is stable to go back to the assisted living once they come to evaluate him. All of the discharge instructions have been discussed with him and with the [id number] who was at the bedside at the time of the encounter. TIME SPENT FOR DISCHARGE: 35 minutes. cc: MD Samuel Robin
== END 2018-12-20 22:30 | DRG 689 ==
LOC: SUPCPDRO → ED 15:45 → 3N 20:07
PROVIDERS: ATTEND Internal Medicine
CPT/HCPCS: 70450; 71010; 71045; 80053; 80069; 81001; 82948; 83036; 83605; 83735; 84443; 85025; 85610; 85730; 87040; 87077; 87088; 87186; 93005; 93010; 94761; 94799; 96361; 96365; 97110; 97162; 97530; 99285; A9270; J2185; J7030; XXXXX

== ENCOUNTER 2018-12-28 11:42 | Inpatient (IN) ==
[2018-12-28 13:25] LABS: BASO# 0.03 X1000 (0.0-0.2); BASO% 0.2 % (0.0-0.8); EOS# 0.03 X1000 (0.0-0.7); EOS% 0.2 % (0.0-10.0); HEMOGLOBIN 11.5 g/dL (14.0-18.0); IMM GRAN# 0.09 X1000 (0.0-0.04); IMM GRAN% 0.7 % (0.0-0.5); LYMPH# 1.18 X1000 (1.2-3.4); LYMPH% 8.8 % (20.5-51.1); MCH 29.9 PG (27-31); MCHC 31.9 g/dL (33-37); MCV 93.8 FL (81-99); MONO# 1.09 X1000 (0.11-0.59); MONO% 8.1 % (1.7-9.3); MPV 11.8 FL (7.4-10.4); NEUT# 11.02 X1000 (1.4-6.5); PLT 223 X1000 (130-400); RBC 3.84 XMIL (4.7-6.1); RDW 13.4 % (11.5-14.5); WBC 13.44 X1000 (4.8-10.8)
[2018-12-28 13:29] LABS: URINE SOURCE CATH
[2018-12-28 13:37] LABS: BILIRUBIN URINE NEGATIVE (NEGATIVE); BLOOD URINE TRACE (NEGATIVE); COLOR YELLOW; GLUCOSE URINE NEGATIVE (NEGATIVE); KETONE URINE NEGATIVE (NEGATIVE); LEUKOCYTES URINE NEGATIVE (NEGATIVE); NITRITE URINE NEGATIVE (NEGATIVE); PH URINE 5.5; PROTEIN URINE NEGATIVE (NEGATIVE); TURBIDITY URINE CLEAR (CLEAR); UROBILINOGEN URINE NORMAL (NORMAL)
[2018-12-28 13:39] LABS: UR EPITHELIAL CELLS <10 /HPF (<10); URINE BACTERIA NEGATIVE /HPF; URINE RBC <10 /HPF (<10); URINE WBC <10 /HPF (<10)
[2018-12-28 13:50] LABS: ALB/GLOB RATIO 1.3; ALBUMIN 3.1 g/dL (3.5-5.0); CALCIUM 9.3 mg/dL (8.8-10.2); CREATININE 1.7 mg/dL (0.7-1.2); POTASSIUM 4.2 mmol/L (3.5-5.1); TOTAL BILIRUBIN 0.37 mg/dL (0.20-1.00); TOTAL PROTEIN 5.4 g/dL (6.3-8.3)
--- NOTE | 2018-12-28 13:50 | Diag Imaging Result Doc PS360 ---
EXAM: CHEST-2 VIEWS HISTORY: cp TECHNIQUE: Chest two views COMPARISON: 12/18/2018 FINDINGS: The lungs are well expanded. The heart is borderline mildly enlarged. The vessels are not distended. There are no infiltrates. No pleural effusions. There are scattered granuloma. IMPRESSION: No acute abnormality identified. Electronically signed by Srinivas Santana 12/28/2018 1:47 PM
--- NOTE | 2018-12-28 14:23 | EKG Report ---
Test Performed on : 12/28/2018 11:34:52 AM Test Reason : ED. No order in [place] Blood Pressure : / mmHG Vent. Rate : 074 BPM Atrial Rate : 074 BPM P-R Int : 202 ms QRS Dur : 148 ms QT Int : 416 ms P-R-T Axes : 047 042 -17 degrees QTc Int : 461 ms Normal sinus rhythm. Right bundle branch block Abnormal ECG No previous ECGs available Unconfirmed Result
--- NOTE | 2018-12-28 16:36 | EKG Report ---
Test Performed on : 12/28/2018 2:26:34 PM Test Reason : ED. No order in [place] Blood Pressure : / mmHG Vent. Rate : 058 BPM Atrial Rate : 058 BPM P-R Int : 228 ms QRS Dur : 148 ms QT Int : 480 ms P-R-T Axes : 035 017 -23 degrees QTc Int : 471 ms Sinus bradycardia. with 1st degree AV block. Right bundle branch block Abnormal ECG When compared with ECG of 28-DEC-2018 11:34, (Unconfirmed) No significant change was found Unconfirmed Result
[2018-12-28] MEDS ORDERED: TYLENOL PO PRN (16:47)
[2018-12-28 17:48] LABS: INR 2.82; PROTIME 31.7 Seconds (11.0-16.0)
[2018-12-28 17:49] LABS: PTT 50.6 Seconds (22.3-41.8)
[2018-12-28] MEDS: HUMALOG SUBQ SCH (21:00)
--- NOTE | 2018-12-28 22:04 | HISTORY AND PHYSICAL ---
PRIMARY CARE PROVIDER: Dr. Flo Vazquez. CHIEF COMPLAINT: Shortness of breath, chest pain. HISTORY OF PRESENT ILLNESS: This is an 88-year-old man, who has dementia, who presents to the emergency room via EMS after being called by the patient's home health nurse stating that the patient complained of intermittent chest pain. On arrival to the emergency room, the patient is oriented to himself only. He has denied having chest pain. He has denied being short of breath, then at other times he has said, "Come to think of it, I was short of breath." He said that he may have had chest pain for 6 days, and at one time he pointed to the left neck and said he was hurting there. The patient's son arrived at the ER and he was told that the patient complained of shortness of breath. The patient was recently hospitalized from December 18 to December 20 with a Klebsiella pneumoniae UTI. Today, urine is essentially negative, although we will send for culture. PAST MEDICAL HISTORY: 1. Atrial fibrillation, on chronic anticoagulation. 2. Hypothyroidism. 3. Hypertension. 4. Vitamin D deficiency. 5. Gastroesophageal reflux disease. 6. Chronic constipation. 7. Alzheimer dementia. 8. Borderline diabetes mellitus. 9. Hyperlipidemia. 10. Benign prostatic hypertrophy. 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 PAST SURGICAL HISTORY: 1. Septoplasty. 2. Arthroscopic knee surgery. 3. Back surgery. 4. Hemorrhoidectomy. 5. Prostatectomy. 6. Bilateral total knee replacements. 7. Bilateral cataract surgery. SOCIAL HISTORY: Denies alcohol, tobacco, or illicit drug use. He currently lives at [facility] in [place]. He uses a walker to ambulate. ALLERGIES: Codeine, sulfa, Actos, and Lipitor. HOME MEDICATIONS: A list will be obtained by the nursing staff and once verified, will review and restart as appropriate. REVIEW OF SYSTEMS: Unable to discuss with the patient due to his dementia. The son states that he has complained of nothing on his visits. PHYSICAL EXAMINATION: GENERAL: This is an 88-year-old gentleman who is sitting up in the bed eating, very pleasant, and he is in no distress. VITAL SIGNS: Blood pressure is 136/73 with a heart rate of 60, respirations are 18, temperature is 98.8 degrees oral, with room air saturations 96 to 98 percent. EYES: Pupils equal, round, react to light. HEAD: Normocephalic, atraumatic. ENT: Mucous membranes are moist. NECK: Supple with trachea midline. CARDIOVASCULAR: Regular rate and rhythm. S1 and S2 are appreciated. No rubs, no murmurs. He has bilateral pitting edema about 1+ noted to just below his knees. Calves are nontender bilaterally per palpation. Peripheral pulses are palpable x4 extremities. PULMONARY: Breath sounds are clear with no increased work of breathing noted. Chest rises and falls symmetrically with respiration. Chest wall is nontender to palpation. GASTROINTESTINAL: Abdomen is soft, nontender, and nondistended with bowel sounds in all 4 quadrants. GENITOURINARY: He has no CVA or suprapubic tenderness. NEUROLOGIC: He is alert. He is oriented to himself only, although he did know his son when he came in. He does follow simple commands. He attempts to carry on a conversation, although he gets confused and changes subjects frequently during the conversation. LABS: WBC is 13.4 with hemoglobin 11.5, hematocrit 36, and platelets of 223,000. INR is 2.82. Sodium is 137, potassium 4.2, BUN 26, creatinine 1.7, with a glucose of 104. His troponin is negative. Urinalysis is essentially negative. Urine culture is pending. Chest x-ray reveals no acute abnormality. Lungs are well expanded. Heart is borderline mildly enlarged. Vessels are not distended. There are no infiltrates, no pleural effusions. EKG: Sinus bradycardia with a first-degree AV block, with a right bundle branch block which is unchanged compared to December. ASSESSMENT: 1. Chest pain. 2. Shortness of breath. 3. Paroxysmal atrial fibrillation. 4. Hypothyroid. 5. Hypertension. 6. Alzheimer dementia. 7. Borderline dementia. 8. Leukocytosis, in a patient with recent Klebsiella pneumoniae urinary tract infection, with antibiotics completed 12/25/2018 or 12/26/2018. PLAN: 1. Patient will be admitted to the medical floor at [facility]. He will be placed on telemetry. 2. fall precautions. 3. patterned blood glucose with sliding scale insulin. 4. trend his troponins and cardiac enzymes. 5. EKG in the morning. 6. CBC and a BMP and a TSH in the morning. 7. Repeat a portable chest x-ray in the morning. 8. Medications will be identified and verified, and then will restart as appropriate. 9. Further treatments pending hospital course. Discussed with Dr Munoz. Dictated by BALBINA Sinha for Robin Munoz MD cc: BALBINA Sinha Agree with the above. the following is my own [id number] assessment. Patient is a very poor historian so history is a little nebulous. workup here largely unremarkable. lungs clear on exam but does have a wet cough productive of yellow sputum during my exam. suspect bronchitis but will monitor overnight and repeat xray in the morning. MTDD
[2018-12-28] MEDS: COLACE PO SCH (22:14)
[2018-12-28] MEDS: NAMENDA PO SCH (22:14)
[2018-12-29] MEDS: HUMALOG SUBQ SCH ×4 (06:28→21:04)
--- NOTE | 2018-12-29 07:09 | Diag Imaging Result Doc PS360 ---
EXAM: CHEST-PORTABLE 12/29/2018 HISTORY: cough, fever TECHNIQUE: AP portable at 0547 COMMENT: Compared to the previous study of 12/28/2018 there is increasing opacification of the right upper lobe however some of this may be due to less optimal expansion of the lungs. Otherwise are has been no appreciable change. IMPRESSION: Right upper lobe pneumonia. Electronically signed by Scooter Albright 12/29/2018 7:07 AM
--- NOTE | 2018-12-29 07:50 | EKG Report ---
Test Performed on : 12/29/2018 06:59:22 AM Test Reason : chest pain Blood Pressure : / mmHG Vent. Rate : 057 BPM Atrial Rate : 057 BPM P-R Int : 224 ms QRS Dur : 158 ms QT Int : 472 ms P-R-T Axes : -08 -30 -19 degrees QTc Int : 459 ms Sinus bradycardia. with 1st degree AV block. Left axis deviation Right bundle branch block Abnormal ECG When compared with ECG of 28-DEC-2018 14:26, (Unconfirmed) No significant change was found Confirmed by Barry Vick MD ([id number]) on 12/31/2018 12:08:00 PM
[2018-12-29 08:20] LABS: BASO# 0.03 X1000 (0.0-0.2); BASO% 0.3 % (0.0-0.8); EOS# 0.08 X1000 (0.0-0.7); EOS% 0.8 % (0.0-10.0); HEMATOCRIT 34.7 % (42.0-52.0); HEMOGLOBIN 10.9 g/dL (14.0-18.0); IMM GRAN# 0.06 X1000 (0.0-0.04); IMM GRAN% 0.6 % (0.0-0.5); LYMPH# 1.59 X1000 (1.2-3.4); LYMPH% 15.2 % (20.5-51.1); MCH 29.9 PG (27-31); MCHC 31.4 g/dL (33-37); MCV 95.1 FL (81-99); MONO# 1.43 X1000 (0.11-0.59); MONO% 13.7 % (1.7-9.3); MPV 11.5 FL (7.4-10.4); NEUT# 7.27 X1000 (1.4-6.5); NEUT% 69.4 % (42.2-75.2); PLT 190 X1000 (130-400); RBC 3.65 XMIL (4.7-6.1); RDW 13.6 % (11.5-14.5); WBC 10.46 X1000 (4.8-10.8)
[2018-12-29 08:42] LABS: CALCIUM 9.4 mg/dL (8.8-10.2); CREATININE 1.4 mg/dL (0.7-1.2); POTASSIUM 4.1 mmol/L (3.5-5.1)
[2018-12-29] MEDS ORDERED: VANCOMYCIN IV PER PHARMACY MISC SCH (08:45)
[2018-12-29] MEDS: COLACE PO SCH ×2 (09:38→21:04)
[2018-12-29] MEDS: FLOMAX PO SCH (09:38)
[2018-12-29] MEDS: ZANTAC PO SCH (09:39)
[2018-12-29] MEDS: NAMENDA PO SCH ×2 (09:39→21:04)
[2018-12-29] MEDS: CORDARONE PO SCH (09:39)
[2018-12-29] MEDS: SEROQUEL PO SCH (09:39)
[2018-12-29] MEDS: COZAAR PO SCH (09:39)
[2018-12-29] MEDS: LASIX PO SCH (09:39)
[2018-12-29] MEDS: SYNTHROID PO SCH (09:42)
[2018-12-29] MEDS: MAXIPIME 2 GM in NS 100 ML IV SCH ×2 (11:15→22:48)
[2018-12-29] MEDS ORDERED: VANCOMYCIN 2,100 MG in NS 500 ML IV ONE (12:00)
--- NOTE | 2018-12-30 02:53 | PROGRESS NOTE ---
DATE: 12/29/2018 INTERVAL HISTORY: Patient was afebrile overnight. Still some mild nonproductive cough, but no dyspnea, fever, chills, nausea, vomiting, chest pain, dysuria, abdominal pain, diarrhea. Repeat chest x-ray this morning does appear to show a slight right upper lobe pneumonia, which may be the explanation for the fever he reportedly had at his assisted living. The patient remains really minimally symptomatic with only mild nonproductive cough. REVIEW OF SYSTEMS: A 12-point review of systems is negative, except as per interval history. LABORATORY: WBC 10.4, hemoglobin 10.9, hematocrit 34.7, and platelets 190,000. INR 2.8. Basic metabolic panel significant only for BUN 24, creatinine 1.4, glucose 121. Troponin and CK negative x3. TSH within normal limits. Urinalysis unremarkable. Urine and blood cultures, no growth to date. PHYSICAL EXAMINATION: Vitals: Temperature max 99.3 degrees, pulse 63, respirations 18, blood pressure 149/73, O2 saturation 98% on room air. General: No acute distress. HEENT: Normocephalic, atraumatic. Moist mucous membranes. No cervical adenopathy. Cardiovascular: Regular rate and rhythm. No murmurs noted. Pulmonary: Really, clear to auscultation bilaterally. No rales identified. Abdomen: Soft, nontender, nondistended. Bowel sounds positive. Extremities: Peripheral pulses intact. No clubbing, cyanosis. Neurologic: Cranial nerves grossly intact. No focal deficits identified. Psychiatric: Awake and alert, but oriented only to person and time. Most responses appropriate. Cooperative. ASSESSMENT AND PLAN: 1. Chest pain. Cardiac workup unremarkable, but did find pneumonia, which may have been contributing. Patient with no further pain. 2. Pneumonia. Patient with fairly minimal symptoms, but did reportedly have a fever up to 102 prior to admission at assisted living, and does appear to have a small right upper lobe pneumonia on repeat chest x-ray. Placed on antibiotics with vancomycin and Zosyn given recent hospitalization and him living at an assisted living. We will plan on 1 to 2 days of IV antibiotics and then consider transitioning over to p.o. 3. Paroxysmal atrial fibrillation. Has been largely normal sinus rhythm here. On Coumadin with therapeutic INR. Did discuss the possibility of transitioning to Eliquis to make it easier to treat him with p.o. 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 continue home amiodarone. 4. Hypothyroidism. Continue home Synthroid. TSH is within normal limits. 5. Hypertension. Reasonable control so far. Monitor. 6. Alzheimer's dementia. Stable. Patient pleasant and cooperative. 7. Benign prostatic hypertrophy. Continue home tamsulosin. 8. Gastroesophageal reflux disease. Continue home ranitidine. 9. Chronic kidney disease III. Baseline creatinine favored to be approximately 1.6, but with fluids overnight has actually improved to 1.4. May have been mildly dehydrated, had slight acute kidney injury on admission. Will see what his creatinine does tomorrow and clarify. 10. Hyperglycemia. Fairly mild. A1c 5.5 just over a week ago. So, likely either stress response or postprandial. MICHAEL
[2018-12-30] MEDS: SYNTHROID PO SCH (06:09)
[2018-12-30] MEDS: HUMALOG SUBQ SCH ×4 (06:13→21:00)
--- NOTE | 2018-12-30 09:09 | Diag Imaging Result Doc PS360 ---
EXAM: CHEST-PORTABLE INDICATION: pneumonia TECHNIQUE: One view COMPARISON: 12/29/2018 FINDINGS: Opacity in the right upper lobe has decreased. This is probably due to slightly better inspiration and better positioning. No new consolidation is identified. Cardiac silhouette is stable. IMPRESSION: Interval decrease in right upper lobe opacity. Electronically signed by Yunior Scott 12/30/2018 9:06 AM
[2018-12-30] MEDS: NAMENDA PO SCH ×2 (09:52→20:50)
[2018-12-30] MEDS: COLACE PO SCH ×2 (09:52→20:50)
[2018-12-30] MEDS: MAXIPIME 2 GM in NS 100 ML IV SCH ×2 (09:52→21:46)
[2018-12-30] MEDS: FLOMAX PO SCH (09:52)
[2018-12-30] MEDS: RAZADYNE PO SCH ×2 (09:53→20:51)
[2018-12-30] MEDS: LASIX PO SCH (09:53)
[2018-12-30] MEDS: CORDARONE PO SCH (09:53)
[2018-12-30] MEDS: ZANTAC PO SCH (09:53)
[2018-12-30] MEDS: COZAAR PO SCH (09:53)
[2018-12-30] MEDS: SEROQUEL PO SCH (09:55)
[2018-12-30 13:03] LABS: INR 1.88
[2018-12-30] MEDS: VANCOMYCIN 1,800 MG in NS 250 ML IV SCH (14:13)
--- NOTE | 2018-12-30 20:16 | PROGRESS NOTE ---
DATE: 12/30/2018 INTERVAL HISTORY: The patient is doing well. No further chest pain. Cough improved. No new complaints. No acute events overnight. REVIEW OF SYSTEMS: Twelve-point review of systems negative except as per interval history. LABS: INR 1.88, glucose 86. IMAGING: Chest x-ray with decrease in right upper lobe opacity. VITAL SIGNS: T-max 98.8 degrees, pulse 56, respirations 20, blood pressure 155/68, O2 saturation 98% on room air. PHYSICAL EXAMINATION: General: No acute distress. Vitals: As above. HEENT: Normocephalic, atraumatic. Moist mucous membranes. No cervical adenopathy. Cardiovascular: Regular rate and rhythm. No murmurs noted. Pulmonary: Clear to auscultation bilaterally. No rales identified. Good air entry. Abdomen: Soft, nontender, nondistended. Bowel sounds positive. Extremities: Peripheral pulses intact. No clubbing or cyanosis. Neurologic: Cranial nerves grossly intact. No focal deficits. Psychiatric: Awake, alert. Remains oriented to person and place, but not time. Cooperative. ASSESSMENT AND PLAN: 1. Chest pain. Cardiac workup largely unremarkable, but did find pneumonia which may have been the cause. Patient's pain resolved. 2. Pneumonia. The patient with symptoms consisting only of above chest pain and mild nonproductive cough, but cough is now better with treatment of pneumonia. Reportedly had a fever at his assisted living, but none here. Placed on antibiotics with vancomycin and Zosyn given recent hospitalization initially. Now improving, so we will plan on transitioning to p.o. doxycycline on discharge. 3. Paroxysmal atrial fibrillation. Has been largely normal sinus rhythm here on Coumadin with therapeutic INR on admission. Discussed transitioning to noval oral anticoagulant with patient and family. They seemed interested and wished to discuss with the generalist. Discussed again today and they said their generalist was on board. Repeated INR now slightly subtherapeutic, so we will go ahead and start him on Eliquis. 4. Hypothyroidism. Continue home Synthroid. TSH within normal limits. 5. Hypertension. Reasonable control so far. Monitor. 6. Dementia, stable mild to moderate. Patient remains pleasant and cooperative. 7. Benign prostatic hypertrophy. Continue home tamsulosin. 8. Gastroesophageal reflux disease. Continue home ranitidine. 9. Chronic kidney disease 3. Baseline creatinine favored to be approximately 1.6, but on last check was actually down to 1.4. Likely baseline at this point. 10. Hyperglycemia, mild and present on admission, but A1c within normal limits so likely stress response or postprandial. DISPOSITION: Anticipate discharge back to assisted living on Tuesday.
[2018-12-30] MEDS: ELIQUIS PO SCH (20:50)
[2018-12-31] MEDS: HUMALOG SUBQ SCH ×4 (06:11→22:45)
[2018-12-31] MEDS: SYNTHROID PO SCH (06:12)
[2018-12-31] MEDS: MAXIPIME 2 GM in NS 100 ML IV SCH ×2 (10:30→22:34)
[2018-12-31] MEDS: SEROQUEL PO SCH (10:30)
[2018-12-31] MEDS: ZANTAC PO SCH (10:31)
[2018-12-31] MEDS: COZAAR PO SCH (10:31)
[2018-12-31] MEDS: NAMENDA PO SCH ×2 (10:31→22:35)
[2018-12-31] MEDS: CORDARONE PO SCH (10:32)
[2018-12-31] MEDS: FLOMAX PO SCH (10:32)
[2018-12-31] MEDS: ELIQUIS PO SCH ×2 (10:32→22:37)
[2018-12-31] MEDS: COLACE PO SCH ×2 (10:32→22:35)
[2018-12-31] MEDS: LASIX PO SCH (10:32)
[2018-12-31] MEDS: RAZADYNE PO SCH ×2 (10:32→22:36)
[2018-12-31] MEDS: VANCOMYCIN 1,800 MG in NS 250 ML IV SCH (12:29)
--- NOTE | 2018-12-31 15:38 | PROGRESS NOTE ---
DATE: 12/31/2018 INTERVAL HISTORY: The patient continues to do well. No further chest pain. Cough essentially resolved. No dyspnea at this point, no acute events overnight. Remains afebrile. REVIEW OF SYSTEMS: Twelve point review of systems negative except as per interval history. VITALS: Temperature 98.8 degrees, pulse 60, respirations 20, blood pressure 147/63, O2 saturation 98% on room air. PHYSICAL EXAM: General: No acute distress. Vitals as above. HEENT: Normocephalic, atraumatic. Moist mucous membranes. No cervical adenopathy. Cardiovascular: Regular rate and rhythm currently. No murmurs noted. Pulmonary: Clear to auscultation bilaterally. No wheezing, rales or rhonchi heard. Abdomen: Soft, nontender, nondistended. Bowel sounds positive. Extremities: Peripheral pulses intact. No clubbing or cyanosis. Neurologic: Cranial nerves grossly intact. No focal deficits. Psychiatric: Normal mood and affect. Awake, alert but remain oriented to person and place only. Remains pleasant and cooperative. ASSESSMENT AND PLAN: 1. Chest pain. Cardiac workup unremarkable. May have been related to pneumonia. Now resolved. 2. Pneumonia. Patient's symptoms consisted only of chest pain and mild nonproductive cough both which now resolved. Reportedly had fever to 102 at assisted living but none here. Placed on vancomycin and Zosyn initially. Planning on transitioning to doxycycline on discharge. 3. Paroxysmal atrial fibrillation. Has been largely normal sinus rhythm here. 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 4. Hypothyroidism. Continue home Synthroid. TSH within normal limits. 5. Hypertension reasonable control so far. Monitor. 6. Dementia stable mild to moderate dementia. Remains pleasant, cooperative. 7. Benign prostatic hypertrophy. Continue home tamsulosin. 8. Gastroesophageal reflux disease. Continue home ranitidine. 9. Chronic kidney disease 3. Creatinine stable on last check. 10. Hyperglycemia mild and present on admission but A1c within normal limits likely stress response. 11. Disposition. Anticipate discharge back to assisted living tomorrow.
[2019-01-01] MEDS: HUMALOG SUBQ SCH ×2 (06:26→11:41)
[2019-01-01] MEDS: SYNTHROID PO SCH (06:42)
[2019-01-01] MEDS: COLACE PO SCH (08:33)
[2019-01-01] MEDS: CORDARONE PO SCH (08:34)
[2019-01-01] MEDS: COZAAR PO SCH (08:35)
[2019-01-01] MEDS: ELIQUIS PO SCH (08:36)
[2019-01-01] MEDS: FLOMAX PO SCH (08:36)
[2019-01-01] MEDS: NAMENDA PO SCH (08:37)
[2019-01-01] MEDS: RAZADYNE PO SCH (08:39)
[2019-01-01] MEDS: LASIX PO SCH (08:39)
[2019-01-01] MEDS: SEROQUEL PO SCH (08:40)
[2019-01-01] MEDS: ZANTAC PO SCH (08:40)
--- NOTE | 2019-01-01 09:20 | PROVIDER DOCUMENTATION ---
This chart was entered by Shagufta Gonzalez Scribe, acting as scribe for Gabo Rodriguez MD. HPI-Chest Pain - General Chief Complaint: Chest Pain Stated Complaint: CHEST PAIN Time Seen by Provider: 12/28/18 12:17 Source: patient, EMS ([facility]) Unable to obtain history due to:: altered (pt is confused and poor historian) Allergies/Adverse Reactions: Patient Allergies Allergy/AdvReac Type Severity Reaction Status Date / Time atorvastatin [From Lipitor] Allergy Unknown Verified 12/28/18 15:38 pioglitazone [From Actos] Allergy Unknown Verified 12/28/18 15:38 Sulfa (Sulfonamide Allergy ANAPHYLAXIS Verified 12/28/18 15:38 Antibiotics) codeine AdvReac VOMITING Verified 12/28/18 15:38 Home Medications: Home Medication List Medication Instructions Recorded Confirmed Last Taken Type Tamsulosin [Flomax] 0.4 mg PO DAILY 03/25/18 12/28/18 12/28/18 History Cholecalciferol (Vitamin D3) 2,000 unit PO DAILY 12/18/18 12/28/18 12/28/18 History [Vitamin D3] Docusate Sodium [Colace] 100 mg PO BID 12/18/18 12/28/18 12/28/18 History Losartan Potassium 1 tab PO DAILY 12/18/18 12/28/18 12/28/18 08:00 History Memantine HCl [Namenda] 5 mg PO BID 12/18/18 12/28/18 12/28/18 History Quetiapine Fumarate [Seroquel] 12.5 mg PO DAILY 12/18/18 12/28/18 12/28/18 History Ranitidine HCl 1 tab PO DAILY 12/18/18 12/28/18 12/28/18 History Warfarin [Coumadin] 3.75 mg PO DIRECTED 12/18/18 12/28/18 12/26/18 History Warfarin [Coumadin] 7.5 mg PO DIRECTED 12/18/18 12/28/18 12/27/18 History Amiodarone [Cordarone] 200 mg PO DAILY 12/28/18 12/28/18 12/28/18 History Amoxicillin 1 tab PO Q12H 12/28/18 12/28/18 12/28/18 08:00 History Furosemide 1 tab PO DAILY 12/28/18 12/28/18 12/28/18 08:00 History Galantamine HBr 1 tab PO BID 12/28/18 12/28/18 12/28/18 08:00 History Levothyroxine Sodium 1 tab PO DAILY 12/28/18 12/28/18 12/28/18 08:00 History Apixaban [Eliquis] 5 mg PO BID #60 tab 12/30/18 Unknown Rx Doxycycline 100 mg PO BID #8 tab 12/30/18 Unknown Rx - History of Present Illness-CP Nature of Presenting Problem: 88 yowm presents to the ed via ems with cc chest pain. per ems pt has dementia and is A/O x1 person. ems sts the recieved a call at 1030am this morning and when [facility] nurse was with pt. nurse sts that pt had been c/o intermittent chest pain about 2 hrs. pt had mild sob with exertion. ems gave pt 325mg ASA and Nitro x1 with relief of pain pt on exam sts he has had come and go pain for 6 days but pt is confused on exam per ems pt was recently tx for a UTI and took his last abx on 12/25/18 Location: reports: other (just sts "chest") Chest Pain Radiation: reports: no radiation Quality of Pain: reports: aching Onset/Duration: 1-3 hours ago (per ems) Timing: gone now Context/Activities at Onset: reports: light activity Associated Symptoms: reports: shortness of breath. 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 denies: palpitations, syncope Respiratory: reports: shortness of breath. denies: cough, wheezing Gastrointestinal: reports: no symptoms reported Genitourinary: reports: no symptoms reported Musculoskeletal: denies: back pain, neck pain Integumentary: reports: no symptoms reported Neurological: denies: dizziness/vertigo, headache/migraines Psychiatric: reports: no symptoms reported Endocrine: reports: no symptoms reported Hematologic/Lymphatic: reports: no symptoms reported Allergic/Immunologic: reports: no symptoms reported All Other Systems: Reviewed and Negative Past History - Adult - PAST MEDICAL HISTORY-ADULT Review of Records: reports: Old Records Reviewed, Nursing Assessment Review, Medications Reviewed, Social history reviewed & non-contributory. Major Childhood Illnesses: reports: denies history Cardiovascular: reports: A-Fib, HTN Respiratory: reports: denies history Gastrointestinal: reports: GERD Genitourinary: reports: kidney disease, prostate cancer Musculoskeletal: reports: arthritis Hand Dominance: Right Handed Neurological: reports: denies history Psychiatric: reports: depression Endocrine/Immune: reports: thyroid disorder Other Conditions: reports: cataract/glaucoma - PRIOR SURGERIES/PROCEDURES Surgical/Procedure History: reports: orthopedic (extremity) - IMMUNIZATION STATUS Childhood Immunizations: See Nurse Assessment Flu Vaccine: See Nurse Assessment - FAMILY HISTORY Family History: reviewed, not pertinent - SOCIAL HISTORY Smoking: denies Substance Use: denies Living Situation: care facility Physical Exam-General - PHYSICAL EXAM-ADULT Initial Vital Signs Reviewed: Yes - CONSTITUTIONAL General Appearance: appears well, alert, no apparent distress, obese - EYES Eyes: PERRL/EOMI, pink conjunctivae - HEAD, EARS, NOSE, MOUTH & THROAT HENMT: moist mucous membranes, normal ENT inspection - NECK Neck: full range of motion, normal inspection - RESPIRATORY Respiratory: chest non-tender, lungs clear, normal breath sounds - CARDIOVASCULAR Cardiovascular: normal peripheral pulses, regular rate, rhythm - GASTROINTESTINAL (ABDOMEN) Abdominal Exam: normal bowel sounds, non tender, soft - LYMPHATIC Lymphatic: no adenopathy - MUSCULOSKELETAL Back Exam: normal inspection, no CVA tenderness, no vertebral tenderness Extremity: normal range of motion, normal capillary refill, pelvis stable, tenderness (BLE), other (pt has multiple bandages from unknown reasons to BUE) - SKIN Integumentary: normal color, normal turgor, warm/dry - NEUROLOGIC Neurologic: grossly normal - PSYCHIATRIC Psych/Mental Status: other (confused due to dementia) - HEART Score HEART Score: History: Slightly Suspicious HEART Score: ECG: Non-Specific Repolarization Disturbance/LBBB/PM HEART Score: Age: > or = 65 Years HEART Score: Risk Factors for Atherosclerotic Disease: > or = 3 Risk Factors or History of Atherosclerotic Disease HEART Score: Troponin: < or = Normal Limit Total HEART Score:: 5 Progress - PLAN OF CARE/RESULTS Progress/Plan/Lab Results: Orders Category Date Time Status Admit - [facility] Routine AdmDCTranf 12/28/18 16:47 Active Admit To Inpatient From Observation Routine AdmDCTranf 12/29/18 11:34 Active Activity - Bedrest with BSC ORDERED Care 12/28/18 16:47 Active FALL Precautions NOW Care 12/28/18 18:49 Active FSBS/Accucheck Result AC + HS Care 12/28/18 18:49 Active Intake and Output-Strict ORDERED Care 12/28/18 16:47 Active Nursing- MD Consult Request ROUTINE Care 12/28/18 18:38 Completed Vital Signs Order Q 8-HR ASSESS Care 12/28/18 16:47 Active Z-Document. for Tele Applied ORDERED Care 12/28/18 16:53 Completed Regular Diet Diet 12/28/18 16:48 Active CHEST-2 VIEWS [RAD] Stat Exams 12/28/18 12:21 Completed CHEST-PORTABLE [RAD] Routine Exams 12/29/18 06:00 Completed CHEST-PORTABLE [RAD] Routine Exams 12/30/18 06:00 Completed BASIC METABOLIC PANEL [CHEM] Routine Lab 12/29/18 07:39 Completed BLOOD CULTURE [BLDCUL] Routine Lab 12/29/18 09:24 Results CBC WITH DIFF [HEME] Routine Lab 12/29/18 07:39 Completed CBC WITH ELECTRONIC DIFF [HEME] Stat Lab 12/28/18 12:35 Completed CK PROFILE [SP CHEM] Q6H Lab 12/28/18 18:48 Completed CK PROFILE [SP CHEM] Q6H Lab 12/29/18 00:26 Completed CK PROFILE [SP CHEM] Stat Lab 12/28/18 12:35 Completed COMPREHENSIVE METABOLIC PANEL [CHEM] Stat Lab 12/28/18 12:35 Completed PT [PROTIME WITH INR] [COAG] Stat Lab 12/28/18 12:25 Completed PTT [COAG] Stat Lab 12/28/18 12:25 Completed TROPONIN T Q6H Lab 12/28/18 18:48 Completed TROPONIN T Q6H Lab 12/29/18 00:26 Completed TROPONIN T Stat Lab 12/28/18 12:35 Completed TSH Routine Lab 12/29/18 07:39 Completed URINALYSIS W/POSS RFLX CULT [URINALYSIS] Stat Lab 12/28/18 13:14 Completed URINE CULTURE [RM] Routine Lab 12/28/18 13:14 Completed Acetaminophen [Tylenol] Med 12/28/18 16:47 Discontinued 650 mg PO Q6H PRN PRN Amiodarone [Cordarone] Med 12/29/18 09:00 Active 200 mg PO DAILY CefEPIME [Maxipime] 2 gm Med 12/29/18 10:00 Active 0.9% Sodium Chloride Inj [Ns] 100 ml IV Q12H Docusate Sodium [Colace] Med 12/28/18 21:00 Active 100 mg PO BID Furosemide [Lasix] Med 12/29/18 09:00 Active 40 mg PO DAILY Galantamine [Razadyne] Med 12/30/18 09:00 Active 12 mg PO BID Insulin Lispro [Humalog] Med 12/28/18 21:00 Active See Protocol SUBQ 0700,1100,1600,2100 Levothyroxine [Synthroid] Med 12/29/18 07:00 Active 150 microgm PO DAILY@0700 Losartan [Cozaar] Med 12/29/18 09:00 Active 50 mg PO DAILY Memantine [Namenda] Med 12/28/18 21:00 Active 5 mg PO BID Pharmacy Order [Vancomycin IV Per Pharmacy] Med 12/29/18 08:45 Active 1 each MISC DIRECTED Quetiapine [Seroquel] Med 12/29/18 09:00 Active 12.5 mg PO DAILY Ranitidine [Zantac] Med 12/29/18 09:00 Active 150 mg PO DAILY Tamsulosin [Flomax] Med 12/29/18 09:00 Active 0.4 mg PO DAILY Vancomycin 1,800 mg Med 12/30/18 12:00 Active 0.9% Sodium Chloride Inj [Ns] 250 ml IV Q24H Vancomycin 2,100 mg Med 12/29/18 12:00 Discontinued 0.9% Sodium Chloride Inj [Ns] 500 ml IV ONCE Telemetry [OM.EQ] Routine Oth 12/28/18 16:47 Active EKG [EKG] Routine Ther 12/29/18 08:00 Completed EKG [EKG] Stat Ther 12/28/18 11:34 Draft EKG [EKG] Stat Ther 12/28/18 14:26 Draft Physical Therapy Eval/Treatment [OM.PT] Routine Ther 12/28/18 16:47 Active Transfer/Admit Order [TRANSFER] Routine Transfer 12/28/18 17:36 Completed Result Diagrams: 12/29/18 07:39 12/29/18 07:39 - REASSESSMENT Reassessment #1 Time Reassessed: 13:51 (pt is resting in bed) Status: improving - EKG 1 Time of EKG reading by physician:: 11:34 EKG Read and Signed by:: Gabo Rodriguez EKG Interpretation (*Must complete 3 of following elements*): Abnormal Rate: 74 Rhythm: nsr [place]: normal QRS: RBB CA Interval: normal ST Wave: normal 2 Time of EKG reading by physician:: 14:26 EKG Read and Signed by:: Gabo Rodriguez EKG Interpretation (*Must complete 3 of following elements*): Abnormal Rate: 58 Rhythm: sinus bradycardia with 1st degree AV block [place]: normal QRS: RBB CA Interval: normal ST Wave: normal Prior EKG Comparison: changes noted - XRAY 1 XRAY: Bilateral XRAY Study: Chest Impression: See EMR Report (EXAM: CHEST-2 VIEWS HISTORY: cp TECHNIQUE: Chest two views COMPARISON: 12/18/2018 FINDINGS: The lungs are well expanded. The heart is borderline mildly enlarged. The vessels are not diste nded. There are no infiltrates. No pleural effusions. There are scattered granuloma. IMPRESSION: No acute abnormality identified. Electronically signed by Srinivas Santana 12/28/2018 1:47 PM 12/28/18 1347 Interpreting Physician: Srinivas Santana MD Dictated Date/Time: 12/28/18 1346 cc: Gabo Rodriguez MD; Samuel Vazquez) - CONSULTS/PCP/HOSPITALIST Notification #1 *Consult/PCP/Hospitalist*: hospitalist Time Discussed: 15:24 Reason/Comments: chest pain Consult Disposition: Admit Departure - Departure Date of Disposition Decision: 12/28/18 Time of Disposition Decision: 15:24 DIAGNOSIS: Chest pain Qualifiers: Chest pain type: unspecified Qualified Code(s): R07.9 - Chest pain, unspecified Disposition: ADMITTED INPATIENT 09 Certified Medical Emergency: Emergent Condition: Serious - Critical Care Note This patient required my direct & personal management of CC.: No Attestation - Physician/ JACINTO Attestation Patient care was provided by Advanced Practice Provider:: No The physician spent face to face time with patient:: Yes Advanced Practice Provider documentation review:: Supervising physician onsite and consulted in the evaluation and care of this patient. The physician did have a face to face encounter with the patient. This chart was documented by the indicated scribe, (Shagufta Gonzalez Scribe) and accurately reflects the services I performed and decisions made by me, Gabo Rodriugez MD, as attested by the provider's signature.
[2019-01-01] MEDS: MAXIPIME 2 GM in NS 100 ML IV SCH (11:40)
[2019-01-01 12:03] VITALS: BP 142/70
[2019-01-01] MEDS: VANCOMYCIN 1,800 MG in NS 250 ML IV SCH (12:25)
--- NOTE | 2019-01-02 12:57 | DISCHARGE SUMMARY ---
ADMISSION DATE: 12/29/2018 DISCHARGE DATE: 01/01/2019 PERTINENT STUDIES: Initial white count 13.4, discharge white count 10.4. Initial creatinine 1.7, repeat creatinine 1.4. Troponin negative x3. Urinalysis negative. Initial chest x-ray shows right upper lobe pneumonia. Repeat chest x-ray interval decrease in right upper lobe opacity. DISCHARGE DIAGNOSES: 1. Chest pain. 2. Pneumonia. 3. Paroxysmal atrial fibrillation. 4. Hypothyroidism. 5. Hypertension. 6. Dementia. 7. Blood pressure. 8. Gastroesophageal reflux disease. 9. Chronic kidney disease, 3. HOSPITAL COURSE: The patient presented from assisted living. The patient was an extremely poor historian, but intermittently related that he may have had some shortness of breath and chest pain prior to arrival. EMS stated that they believed he may have had a fever at his assisted living as well. Initial evaluation was really unremarkable. He did have a mild leukocytosis, with a white count of 13.4. His INR was therapeutic. Creatinine was slightly elevated over presumed baseline. Initial chest x-ray did not really show much, but repeat chest x-ray the next morning did show small right upper lobe pneumonia. Urinalysis was unremarkable. He was placed on antibiotics with vancomycin and Zosyn initially and transitioned to doxycycline at discharge. His symptoms really resolved after just one day of antibiotics. He was never febrile here. His leukocytosis resolved. He has a history of atrial fibrillation, but it was really normal sinus rhythm here. He was on Coumadin on arrival, with therapeutic INR, but after discussion with family this was discontinued and he was transitioned to Eliquis once his INR came down. The patient remains mildly and pleasantly confused for the duration of his study. He did have some mild hyperglycemia, but A1c was within normal limits, and this was favored to be stress response versus postprandial. After stabilization, the patient was discharged back to his assisted living. The patient had fairly labile blood pressures during his hospitalization. He got up as high as 180/77 but not long thereafter was down as low as 128/64. Given age and comorbidities, it was felt that adding additional antihypertensives was more likely to result in intermittent hypotension and increased possibility of fall, which is more problematic than occasional elevations. DISCHARGE VITAL SIGNS: Temperature 98.7 degrees, pulse 57, respirations 16, blood pressure 142/70, O2 saturation 96% on room air. DISCHARGE DIET: Cardiac. DISCHARGE MEDICATIONS: Docusate 100 mg p.o. b.i.d., amiodarone 200 mg p.o. daily, Flomax 0.4 mg p.o. daily, Lasix 40 mg p.o. daily, galantine 1 tab p.o. b.i.d., Synthroid 150 mcg p.o. daily, losartan 50 mg p.o. daily, lamantine 5 mg p.o. b.i.d., ranitidine 300 mg p.o. daily, Seroquel 12.5 mg p.o. daily; doxycycline 100 mg p.o. b.i.d. for 8 doses, Eliquis 5 mg p.o. b.i.d. PLAN: Patient discharging home to assisted living. Follow up with PCP. Recommend recheck kidney function. With a little bit of fluid overnight the patient's creatinine did improve down to 1.4 here, but recommend recheck to make sure that his Eliquis dose does not need to be decreased. If his creatinine increases above 1.5, then his Eliquis will need to be decreased to 2.5 b.i.d. TIME SPENT: Greater than 30 minutes spent arranging discharge and counseling patient.
== END 2019-01-01 16:13 | DRG 195 ==
LOC: DIRADM 11:42 → ED 11:42 → INTOOBSV 18:07 → 3N 18:07 → UNDODISOB 01-01 16:13
PROVIDERS: ATTEND Internal Medicine
CPT/HCPCS: 71010; 71020; 71045; 71046; 80048; 80053; 81001; 82550; 82948; 84443; 84484; 85025; 85610; 85730; 87040; 87088; 93005; 93010; 97116; 97162; 97530; 99285; A9270; J0692; J1815; J3370; J7040; J7050; XXXXX

== ENCOUNTER 2019-04-06 15:06 | Inpatient (IN) ==
[2019-04-06] MEDS ORDERED: ASPIRIN PO ONE (15:21)
--- NOTE | 2019-04-06 15:32 | EKG Report ---
Test Performed on : 04/06/2019 3:16:03 PM Test Reason : SOB/NEAR SYNCOPE Blood Pressure : / mmHG Vent. Rate : 069 BPM Atrial Rate : 069 BPM P-R Int : 234 ms QRS Dur : 158 ms QT Int : 420 ms P-R-T Axes : 040 023 -12 degrees QTc Int : 450 ms Sinus rhythm. with 1st degree AV block. with premature supraventricular complexes. Right bundle branch block Abnormal ECG When compared with ECG of 29-DEC-2018 06:59, premature supraventricular complexes. are now present QRS axis shifted right Unconfirmed Result
[2019-04-06 15:43] LABS: BASO# 0.04 X1000 (0.0-0.2); BASO% 0.5 % (0.0-0.8); EOS# 0.16 X1000 (0.0-0.7); EOS% 1.9 % (0.0-10.0); HEMATOCRIT 41.5 % (42.0-52.0); HEMOGLOBIN 12.9 g/dL (14.0-18.0); LYMPH# 1.16 X1000 (1.2-3.4); LYMPH% 13.7 % (20.5-51.1); MCH 29.7 PG (27-31); MCHC 31.1 g/dL (33-37); MCV 95.4 FL (81-99); MONO# 0.93 X1000 (0.11-0.59); MPV 12.3 FL (7.4-10.4); NEUT# 6.18 X1000 (1.4-6.5); NEUT% 72.9 % (42.2-75.2); PLT 124 X1000 (130-400); RBC 4.35 XMIL (4.7-6.1); RDW 13.6 % (11.5-14.5); WBC 8.47 X1000 (4.8-10.8)
--- NOTE | 2019-04-06 15:48 | Diag Imaging Result Doc PS360 ---
EXAM: CHEST-2 VIEWS HISTORY: sob/cough TECHNIQUE: Chest two views COMPARISON: 12/30/2018 FINDINGS: The lungs are well expanded. The heart is not enlarged. The vessels are not distended. There are no infiltrates. No pleural effusions. IMPRESSION: No pneumonia. Electronically signed by Srinivas Santana 04/06/2019 3:46 PM
[2019-04-06 15:55] LABS: INR 1.47; PROTIME 18.1 Seconds (11.0-16.0)
[2019-04-06 15:56] LABS: PTT 32.4 Seconds (22.3-41.8)
[2019-04-06 16:04] LABS: ALB/GLOB RATIO 1.6; ALBUMIN 3.7 g/dL (3.5-5.0); CALCIUM 9.2 mg/dL (8.8-10.2); CREATININE 1.7 mg/dL (0.7-1.2); POTASSIUM 3.8 mmol/L (3.5-5.1); TOTAL BILIRUBIN 0.4 mg/dL (0.20-1.00)
--- NOTE | 2019-04-06 18:47 | PROVIDER DOCUMENTATION ---
This chart was entered by Lasha Khan Scribe, acting as scribe for Mahendra Zimmer MD. HPI-General Adult - General Chief Complaint: Shortness of Breath Stated Complaint: WEAKNESS, COUGH, UNABLE TO WALK ALMOST PASSED OUT Time Seen by Provider: 04/06/19 17:40 Source: patient Allergies/Adverse Reactions: Patient Allergies Allergy/AdvReac Type Severity Reaction Status Date / Time atorvastatin [From Lipitor] Allergy Unknown Verified 12/28/18 15:38 pioglitazone [From Actos] Allergy Unknown Verified 12/28/18 15:38 Sulfa (Sulfonamide Allergy ANAPHYLAXIS Verified 12/28/18 15:38 Antibiotics) codeine AdvReac VOMITING Verified 12/28/18 15:38 Home Medications: Home Medication List Medication Instructions Recorded Confirmed Last Taken Type Tamsulosin [Flomax] 0.4 mg PO DAILY 03/25/18 12/28/18 12/28/18 History Cholecalciferol (Vitamin D3) 2,000 unit PO DAILY 12/18/18 12/28/18 12/28/18 History [Vitamin D3] Docusate Sodium [Colace] 100 mg PO BID 12/18/18 12/28/18 12/28/18 History Losartan Potassium 1 tab PO DAILY 12/18/18 12/28/18 12/28/18 08:00 History Memantine HCl [Namenda] 5 mg PO BID 12/18/18 12/28/18 12/28/18 History Quetiapine Fumarate [Seroquel] 12.5 mg PO DAILY 12/18/18 12/28/18 12/28/18 History Ranitidine HCl 1 tab PO DAILY 12/18/18 12/28/18 12/28/18 History Amiodarone [Cordarone] 200 mg PO DAILY 12/28/18 12/28/18 12/28/18 History Furosemide 1 tab PO DAILY 12/28/18 12/28/18 12/28/18 08:00 History Galantamine HBr 1 tab PO BID 12/28/18 12/28/18 12/28/18 08:00 History Levothyroxine Sodium 1 tab PO DAILY 12/28/18 12/28/18 12/28/18 08:00 History Apixaban [Eliquis] 5 mg PO BID #60 tab 07/13/19 Unknown Rx Doxycycline 100 mg PO BID #8 tab 12/30/18 Unknown Rx Apixaban [Eliquis] 5 mg PO BID tab 01/01/19 Unknown Rx - History of Present Illness -Gen Adult Nature of Presenting Problems: 88 yof presents to the ed with c/o SOB . pt stated onset symptoms started a month ago but worsened today. pt stated having near syncope episode today. pt lives at [facility]. pt has a hx of CHF and Dementia Location of Pain/Injury: reports: none Pain Radiation: reports: no radiation Quality of Pain: reports: none Severity: reports: mild Onset/Duration: reports: other (symptoms onset for a month but worse today) Timing: reports: still present Context/Activities at Onset: reports: none Associated Symptoms: reports: cough, shortness of breath. denies: diarrhea, fever/chills, nausea, vomiting Review of Systems - Adult - REVIEW OF SYSTEMS - ADULT Constitutional: reports: no symptoms reported Eyes: reports: no symptoms reported Ears, Nose, Mouth & Throat: reports: no symptoms reported Cardiovascular: denies: chest pain, edema Respiratory: reports: cough, shortness of breath. denies: dyspnea on exertion, hemoptysis Gastrointestinal: denies: abdominal pain, diarrhea, nausea, vomiting Genitourinary: reports: no symptoms reported Musculoskeletal: reports: no symptoms reported Integumentary: reports: no symptoms reported Neurological: reports: no symptoms reported Psychiatric: reports: no symptoms reported Endocrine: reports: no symptoms reported Hematologic/Lymphatic: reports: no symptoms reported Allergic/Immunologic: reports: no symptoms reported All Other Systems: Reviewed and Negative Past History - Adult - PAST MEDICAL HISTORY-ADULT Review of Records: reports: Old Records Reviewed, Nursing Assessment Review, Medications Reviewed, Social history reviewed & non-contributory. Major Childhood Illnesses: reports: denies history Cardiovascular: reports: HTN Respiratory: reports: denies history Gastrointestinal: reports: denies history Obstetrical/Gynecological: reports: denies history Genitourinary: reports: denies history Musculoskeletal: reports: denies history Neurological: reports: dementia Endocrine/Immune: reports: denies history Other Conditions: reports: denies history - IMMUNIZATION STATUS Childhood Immunizations: See Nurse Assessment Flu Vaccine: See Nurse Assessment - FAMILY HISTORY Family History: reviewed, not pertinent - SOCIAL HISTORY Living Situation: care facility ([facility]) Physical Exam-General - PHYSICAL EXAM-ADULT Initial Vital Signs Reviewed: Yes - CONSTITUTIONAL General Appearance: appears well, alert, mild distress - EYES Eyes: PERRL/EOMI - HEAD, EARS, NOSE, MOUTH & THROAT HENMT: moist mucous membranes, normal ENT inspection, TMs normal, pharynx normal - NECK Neck: non-tender, full range of motion, supple, normal inspection - RESPIRATORY Respiratory: chest non-tender, no pleuratic chest pain, no respiratory distress, no accessory muscle use, rhonchi, wheezing (mild) - CARDIOVASCULAR Cardiovascular: normal peripheral pulses, regular rate, rhythm, no edema, no gallop, no JVD, no murmur - GASTROINTESTINAL (ABDOMEN) Abdominal Exam: normal bowel sounds, non tender, soft, no organomegaly, no pulsatile mass - GENITOURINARY Male Genitalia: deferred Rectal Exam: deferred Hemoccult Exam: deferred - LYMPHATIC Lymphatic: no adenopathy - MUSCULOSKELETAL Back Exam: normal inspection, no CVA tenderness, no vertebral tenderness Extremity: normal range of motion, non-tender, normal gait, pedal edema (bilateral ankles 3+) - SKIN Integumentary: normal color, normal turgor, warm/dry - NEUROLOGIC Neurologic: grossly normal, no motor/sensory deficits - PSYCHIATRIC Psych/Mental Status: normal mood/affect, normal thought content, normal thought process, oriented x 3 Progress - PLAN OF CARE/RESULTS Progress/Plan/Lab Results: Vital Signs - 8 hr 04/06/19 15:06 04/06/19 16:33 04/06/19 16:34 Temperature 99.4 F Pulse Rate 82 68 77 Respiratory Rate 20 13 21 Blood Pressure 148/80 162/86 O2 Sat by Pulse Oximetry 95 95 97 04/06/19 16:45 Temperature Pulse Rate 73 Respiratory Rate 21 Blood Pressure O2 Sat by Pulse Oximetry 96 Laboratory Results - last 24 hr 04/06/19 04/06/19 04/06/19 15:24 15:24 15:24 WBC 8.47 RBC 4.35 L Hgb 12.9 L Hct 41.5 L MCV 95.4 MCH 29.7 MCHC 31.1 L RDW Std Deviation 13.6 Plt Count 124 L MPV 12.3 H Immature Gran % (Auto) 0.0 Neut % (Auto) 72.9 Lymph % (Auto) 13.7 L Park % (Auto) 11.0 H Eos % (Auto) 1.9 Baso % (Auto) 0.5 Immature Gran # (Auto) 0.00 Neut # (Auto) 6.18 Lymph # (Auto) 1.16 L Park # (Auto) 0.93 H Eos # (Auto) 0.16 Baso # (Auto) 0.04 PT INR PTT (Actin FS) Sodium 138 Potassium 3.8 Chloride 101 Carbon Dioxide 24 L Anion Gap 13 BUN 26 H Creatinine 1.7 H Estimated GFR/1.73 m2 38 BUN/Creatinine Ratio 15 Glucose 179 H Calculated Osmolality 285 Calcium 9.2 Total Bilirubin 0.40 AST 14 ALT 10 Alkaline Phosphatase 135 H Creatine Kinase 165 Troponin T Bju-I-Ebdttjdmhdx Pept 2577 H Total Protein 6.0 L Albumin 3.7 Globulin 2.3 Albumin/Globulin Ratio 1.6 04/06/19 04/06/19 15:24 15:24 WBC RBC Hgb Hct MCV MCH MCHC RDW Std Deviation Plt Count MPV Immature Gran % (Auto) Neut % (Auto) Lymph % (Auto) Park % (Auto) Eos % (Auto) Baso % (Auto) Immature Gran # (Auto) Neut # (Auto) Lymph # (Auto) Park # (Auto) Eos # (Auto) Baso # (Auto) PT 18.1 H INR 1.47 PTT (Actin FS) 32.4 Sodium Potassium Chloride Carbon Dioxide Anion Gap BUN Creatinine Estimated GFR/1.73 m2 BUN/Creatinine Ratio Glucose Calculated Osmolality Calcium Total Bilirubin AST ALT Alkaline Phosphatase Creatine Kinase Troponin T < 0.010 Lnr-L-Sngvnrhsmid Pept Total Protein Albumin Globulin Albumin/Globulin Ratio Orders Category Date Time Status Cardiac Monitoring DIRECTED Care 04/06/19 15:21 Active Oxygen Therapy- ED Nursing DIRECTED Care 04/06/19 15:21 Active Saline Loc NOW Care 04/06/19 15:21 Active CHEST-2 VIEWS [RAD] Stat Exams 04/06/19 15:[address] HEAD W/O CONTRAST [CT] Stat Exams 04/06/19 17:58 Ordered CBC WITH ELECTRONIC DIFF [HEME] Stat Lab 04/06/19 15:24 Completed CK PROFILE [SP CHEM] Stat Lab 04/06/19 15:24 Completed COMPREHENSIVE METABOLIC PANEL [CHEM] Stat Lab 04/06/19 15:24 Completed PRO B-NATRIURETIC PEPTIDE Stat Lab 04/06/19 15:24 Completed PROTIME WITH INR [COAG] Stat Lab 04/06/19 15:24 Completed PTT [COAG] Stat Lab 04/06/19 15:24 Completed TROPONIN T Stat Lab 04/06/19 15:24 Completed Aspirin Med 04/06/19 15:21 Discontinued 325 mg PO NOW ONE CP/SOB/Palp >45 yrs of Age Stat Oth 04/06/19 15:21 Ordered EKG [EKG] Stat Ther 04/06/19 15:21 Draft Result Diagrams: 04/06/19 15:24 04/06/19 15:24 - XRAY 1 XRAY Study: Chest Impression: See EMR Report (EXAM: CHEST-2 VIEWS HISTORY: sob/cough TECHNIQUE: Chest two views COMPARISON: 12/30/2018 FINDINGS: The lungs are well expanded. The heart is not enlarged. The vessels are not distended. There are no infiltrates. No pleural effusions. IMPRESSION: No pneumonia. Electronically signed by Srinivas Santana 04/06/2019 3:46 PM 04/06/19 1546 Interpreting Physician: Srinivas Santana MD Dictated Date/Time: 04/06/19 1542 cc: Mahendra Zimmer MD; Samuel Vazquez) - CONSULTS/PCP/HOSPITALIST Notification #1 *Consult/PCP/Hospitalist*: Rosa EAR MOLD LABORATORY TECHNICIAN for Dr Torres Time Discussed: 18:46 Consult Disposition: Will see in ED, Admit Departure - Departure Date of Disposition Decision: 04/06/19 Time of Disposition Decision: 18:46 DIAGNOSIS: CHF exacerbation, Renal insufficiency Disposition: ADMITTED INPATIENT 09 Certified Medical Emergency: Emergent Condition: Fair Referrals and Follow-Ups: Samuel Vazquez [Primary Care Provider] - - Critical Care Note This patient required my direct & personal management of CC.: No Attestation - Physician/ JACINTO Attestation Patient care was provided by Advanced Practice Provider:: No The physician spent face to face time with patient:: Yes Advanced Practice Provider documentation review:: Supervising physician onsite and consulted in the evaluation and care of this patient. The physician did have a face to face encounter with the patient. This chart was documented by the indicated scribe, (Lasha Khan, Scribe) an d accurately reflects the services I performed and decisions made by me, Mahendra Zimmer MD, as attested by the provider's signature.
--- NOTE | 2019-04-06 19:10 | Diag Imaging Result Doc PS360 ---
EXAM: CT HEAD W/O CONTRAST HISTORY: ams TECHNIQUE: CT head without contrast COMPARISON: 12/18/2018 FINDINGS: No parenchymal hemorrhage. No epidural or subdural hematoma. No subarachnoid hemorrhage. There is atrophy with chronic microvascular ischemic changes. No mass identified on this noncontrasted exam. No hydrocephalus. No sinus opacification. IMPRESSION: 1.No hemorrhage 2.Atrophy with chronic microvascular ischemic changes This exam was performed using automated exposure control, adjustment of mA or kV according to patient size, and/or use of iterative reconstruction technique. Electronically signed by Srinivas Santana 04/06/2019 7:07 PM
[2019-04-06] MEDS ORDERED: ZOFRAN IV PRN (19:50)
[2019-04-06] MEDS ORDERED: TYLENOL PO PRN (19:50)
[2019-04-06] MEDS ORDERED: LASIX IV ONE (19:55)
--- NOTE | 2019-04-06 22:09 | HISTORY AND PHYSICAL ---
PRIMARY CARE PHYSICIAN: Samuel Vazquez MD CHIEF COMPLAINT: Shortness of breath. HISTORY OF PRESENT ILLNESS: Mr. Chung is an 88-year-old male who presents to the ER today with complaints of shortness of breath that started on Tuesday of this week. The patient has a past medical history of Alzheimer dementia. The patient's son who is at the bedside states that the patient lives in assisted living [facility]. The patient's son visited him on Tuesday this week. He noticed him to have some sinus issues, where he was having some cough. He visited him each day this week. He noticed the sinus issues to be a little bit more pronounced every day. Today he noticed him to have some wheezing. He has also noticed him to be more lethargic. He also had some dizziness and weakness. Today he actually had a partial syncopal episode, which was described by the assisted living facility staff as where he became very weak and actually had some kind of fall. He did not hit his head. He has not complained of any headaches. He has not had any fevers; however, today when he came to the ER he did have a temperature of 99.4 degrees. The patient does have severe Alzheimer dementia. He is oriented to himself only. He is not complaining of any chest pain. I can hear some audible nasal wheezing; however, when I auscultate his chest I do not hear the wheezing. I do not see any JVD. He does have some edema to his legs, but it does not seem to be pitting at this time. The patient is a very large patient who is known to have a past medical history of congestive heart failure. Today his proBNP is noted to be 2577. When I looked back in the past medical record, I did not see a proBNP from the past. His creatinine today is noted to be 1.7. I did see a past creatinine from December of 1.4 and 1.7. The patient was noted to have a urinary tract infection in December, where he grew out Klebsiella pneumonia in his urine. A urinalysis was not done today. We will order a urinalysis for today. The patient is known to be on Lasix 80 mg at home. The patient is noted to be in atrial fibrillation on the monitor, and this is chronic for him. He is on Eliquis at home. The patient does have chronic back pain. He has not been complaining of any pain at this time. There are no other symptoms noted. PAST MEDICAL HISTORY: 1. Atrial fibrillation, on chronic anticoagulation. 2. Hypothyroidism. 3. Hypertension. 4. Vitamin D deficiency. 5. Gastroesophageal reflux disease. 6. Chronic constipation. 7. Alzheimer dementia. 8. Borderline diabetes mellitus. 9. Hyperlipidemia. 10. Benign prostatic hypertrophy. 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 PAST SURGICAL HISTORY: 1. Septoplasty. 2. Arthroscopic knee surgery. 3. Back surgery. 4. Hemorrhoidectomy. 5. Prostatectomy. 6. Bilateral total knee replacements. 7. Bilateral cataract surgery. SOCIAL HISTORY: The patient lives at the [facility] living [facility]. He denies any alcohol, tobacco or illicit drug use. He uses a walker to ambulate. ALLERGIES: Atorvastatin, pioglitazone, sulfa and codeine. MEDICATIONS: Home medication list has not been verified. We will review and restart as appropriate. LABORATORY DATA: White blood cell count 8.47, red blood cell count 4.35, hemoglobin 12.9, hematocrit 41.5, platelet count 124,000. PT 18.1, INR 1.47, PTT is 32.4. Sodium 138, potassium 3.8, chloride 101, carbon dioxide 24, anion gap 13, BUN is 26, creatinine is 1.7, estimated GFR is 38, glucose 179, calcium is 9.2, total bilirubin 0.4, AST is 14, ALT is 10, alkaline phosphatase 135. Creatine kinase 165. Troponin less than 0.01. ProBNP 2577. DIAGNOSTIC DATA: Head CT shows no hemorrhage, atrophy with chronic microvascular ischemic changes. Chest x-ray shows no pneumonia and no pleural effusions. EKG shows sinus rhythm with first-degree AV block with premature ventricular complexes and a right bundle branch block with a rate of 69. REVIEW OF SYSTEMS: A 12-point review of systems was performed. Some of it was unable to obtain. Please see the HPI for what I was able to obtain. Most of it was obtained from the son. PHYSICAL EXAMINATION: VITAL SIGNS: Temperature 99.4 degrees, pulse rate 82, respiratory rate 20, blood pressure 162/86, O2 saturation 97% on room air. Weight 296 pounds, height 6 feet 3 inches. GENERAL: This is an 88-year-old male. He is lying in the ER stretcher. He is in no acute distress at the present time. He is well nourished and well developed. HEENT: Atraumatic, normocephalic. Pupils are equal, round and reactive to light. Extraocular movements are intact. Sclerae is anicteric. Mucous membranes are moist. NECK: Supple, with no lymphadenopathy. Trachea is midline. There is no JVD. No thyromegaly. No bruits. CARDIOVASCULAR: Irregular rate and rhythm. There are no murmurs, gallops or rubs appreciated. RESPIRATORY: Lung sounds are clear when auscultated. There is equal chest excursion. Respirations are nonlabored. There is no accessory muscle usage. One can hear nasal wheezing. GASTROINTESTINAL: Abdomen is large and obese. It is nontender and nondistended. Bowel sounds are present x4. Abdomen is soft. NEUROLOGIC: The patient has dementia. He is able to move all extremities well. The patient is awake. He is oriented to self. He is able to follow all commands. MUSCULOSKELETAL: Full distal strength noted. No abnormalities. No deformities. EXTREMITIES: No clubbing, no cyanosis. There is edema noted to the bilateral lower extremities. It is nonpitting. DP and PT pulses are present and palpable. SKIN: Warm, dry and intact. There is no diaphoresis. ASSESSMENT AND PLAN: 1. Dyspnea. We are going to admit the patient to the medical floor. We are going to place him on monitoring coordinator. We will review his home medications and continue them appropriately once they are placed in the computer by nursing staff. We are going to get a flu screen on this patient. He did have a temperature of 99.4 degrees. His chest x-ray was clear. His white count is normal at this time. Do not know if this dyspnea is related to congestive heart failure or if it is related to something viral. The chest x-ray is negative for pneumonia we are going to repeat a chest x-ray in the morning. We are going to give him a dose of Lasix. I am also going to get a urine on the patient. 2. Congestive heart failure. The patient does have elevated proBNP. We are not sure if this is a congestive heart failure exacerbation. He does have the dyspnea. He does have a slightly elevated temperature. His white count is within normal range and the chest x-ray is clear. He does not have pulmonary edema, does not have pneumonia. I am going to get a urine on him to see if that is what is causing that slightly elevated temperature. I am getting a flu screen on him. We will await those results. I am going to go ahead and give him some Lasix to see if that will help pull some fluid off and help his dyspnea. He does get 80mg a day. I am going to give him 80mg intravenously. I am going to get an echocardiogram tomorrow. I am going to repeat his chest x-ray in the morning. We will place him on strict I&O and fluid restrictions. 3. Hypertension. Once his home medication reconciliation has been performed, I will restart his home blood pressure medications. 4. Hypothyroidism. I am going to do a TSH level on this patient, and I will restart his home Synthroid once the home medication reconciliation has been performed. 5. Borderline diabetes. The patient does have an elevated glucose at this time. I am going to check an A1c on this patient. The patient's family does state the patient had some weight gain. We are going to see what his A1c has been running and see if we need to put him on sliding scale insulin and check his blood sugars. I am going to repeat his labs in the morning, also. 6. Obesity. Family states the patient has gained some weight over the past 18 months. They state he has gained greater than [address] him on a healthy heart diet. 7. Atrial fibrillation, on chronic anticoagulation. Once his home medication reconciliation has been performed, I will restart his Eliquis and his amiodarone. 8. Alzheimer dementia. Once his home medication reconciliation is performed, we will restart these medications for his Alzheimer dementia. 9. Gastrointestinal prophylaxis. I have started him on Prilosec daily. 10. Deep venous thrombosis prophylaxis. I am going to restart his Eliquis once medication reconciliation has been performed. My plan is I will admit him to the medical floor. I am going to check a urinalysis on this patient. I am going to check a flu screen on this patient. I am going to give him some Lasix. I am going to put him on oxygen per protocol. I am going to do some labs in the morning. Recheck a chest x-ray in the morning. I am going to do an echocardiogram tomorrow. We are going to restart his home medications and all other further treatment pending hospital course and lab data. Dictated by BALBINA Solis for Hector Torres MD cc: MD Dr. Brian Sales interviewed and examined this patient with the AUTO CLAIM REPRESENTATIVE. The above dictation accurately reflects the history, exam and medical treatment plan. [facility]
[2019-04-06 22:37] LABS: URINE SOURCE CATH
[2019-04-06 22:42] LABS: BILIRUBIN URINE NEGATIVE (NEGATIVE); BLOOD URINE SMALL (NEGATIVE); COLOR STRAW; GLUCOSE URINE NEGATIVE (NEGATIVE); KETONE URINE NEGATIVE (NEGATIVE); LEUKOCYTES URINE NEGATIVE (NEGATIVE); NITRITE URINE NEGATIVE (NEGATIVE); PH URINE 6.5; PROTEIN URINE NEGATIVE (NEGATIVE); SP GRAVITY URINE 1.007; TURBIDITY URINE CLEAR (CLEAR); UR EPITHELIAL CELLS <10 /HPF (<10); URINE BACTERIA NEGATIVE /HPF; URINE RBC <10 /HPF (<10); URINE WBC <10 /HPF (<10); UROBILINOGEN URINE NORMAL (NORMAL)
[2019-04-07] MEDS ORDERED: PATIENT'S OWN MED TOP PRN
[2019-04-07] MEDS: SYNTHROID PO SCH (06:10)
--- NOTE | 2019-04-07 06:32 | Diag Imaging Result Doc PS360 ---
EXAM: CHEST-PORTABLE HISTORY: dyspnea TECHNIQUE: Single view COMPARISON: 04/06/2019 FINDINGS: Poor inspiratory effort. There is pulmonary edema on the current exam. The heart is borderline mildly prominent. No pleural effusions. No consolidation.. IMPRESSION: Pulmonary edema Electronically signed by Srinivas Santana 04/07/2019 6:30 AM
[2019-04-07 07:43] LABS: BASO# 0.03 X1000 (0.0-0.2); BASO% 0.3 % (0.0-0.8); EOS# 0.17 X1000 (0.0-0.7); EOS% 1.7 % (0.0-10.0); HEMATOCRIT 43.1 % (42.0-52.0); HEMOGLOBIN 13.2 g/dL (14.0-18.0); IMM GRAN# 0.03 X1000 (0.0-0.04); IMM GRAN% 0.3 % (0.0-0.5); LYMPH# 1.52 X1000 (1.2-3.4); LYMPH% 15.2 % (20.5-51.1); MCH 29.1 PG (27-31); MCHC 30.6 g/dL (33-37); MCV 95.1 FL (81-99); MONO# 1.16 X1000 (0.11-0.59); MONO% 11.6 % (1.7-9.3); NEUT# 7.08 X1000 (1.4-6.5); NEUT% 70.9 % (42.2-75.2); PLT 102 X1000 (130-400); RBC 4.53 XMIL (4.7-6.1); RDW 13.5 % (11.5-14.5); WBC 9.99 X1000 (4.8-10.8)
[2019-04-07 08:05] LABS: AGAP 12; BUN 24 mg/dL (8-22); CALCIUM 9.5 mg/dL (8.8-10.2); CHLORIDE 105 mmol/L (98-107); CHOLESTEROL 161 mg/dL (0-200); COSMO 289; CREATININE 1.8 mg/dL (0.7-1.2); ESTIMATED GFR 36; GLUCOSE 94 mg/dL (70-104); HDL 68 mg/dL (35-55); LDL 80 mg/dL; MAGNESIUM 1.9 mg/dL (1.5-2.7); POTASSIUM 3.7 mmol/L (3.5-5.1); SODIUM 143 mmol/L (136-145); TCO2 26 mmol/L (25-35); TRIGLYCERIDES 63 mg/dL (39-160); VLDL 13 mg/dL
[2019-04-07 08:12] LABS: HEMOGLOBIN A1C 5.4 % (4.8-6.0)
[2019-04-07] MEDS: LASIX IV SCH ×2 (08:44→20:30)
[2019-04-07] MEDS ORDERED: LASIX PO SCH (09:00)
--- NOTE | 2019-04-07 09:31 | PROGRESS NOTE ---
DATE: 04/07/2019 SUBJECTIVE: The patient himself has no new complaints. His daughter notes that he is breathing a little bit easier and states that his bilateral legs although still swollen are actually less than when he came to the [facility] last night. She denies any knowledge of fevers or chills but does note that he has had a fall. OBJECTIVE: Vital Signs: Temperature 99.7, pulse 65, respiratory rate 18, and BP 149/77. General: The patient is awake. Currently in no respiratory distress. He is lying quietly in the bed. HEENT: Normocephalic. Neck: Supple. CV: Regular rate. No murmurs. Chest: Decreased breath sounds but equal bilaterally. No current crackles appreciable, or wheezing. Abdomen: Soft, obese, and nondistended. Extremities: He is noted to move all extremities. He has trace edema in the right lower extremity and 1+ in the left lower extremity. ASSESSMENT: 1. Congestive heart failure with exacerbation. His chest x-ray shows pulmonary edema. We are going to continue him on IV Lasix and we will follow. 2. Hypertension. 3. Hypothyroidism. 4. History of diabetes. 5. Obesity. 6. Alzheimer's type dementia. PLAN: We will continue the patient in the hospital. Continue Lasix and symptomatic care. Continue his home medications. Further orders as needed. cc: Jesus Marino MD
[2019-04-07] MEDS: COLACE PO SCH ×2 (10:16→20:31)
[2019-04-07] MEDS: VITAMIN D PO SCH (10:17)
[2019-04-07] MEDS: SEROQUEL PO SCH (10:17)
[2019-04-07] MEDS: CORDARONE PO SCH (10:18)
[2019-04-07] MEDS: COZAAR PO SCH (10:18)
[2019-04-07] MEDS: ELIQUIS PO SCH ×2 (10:18→20:31)
[2019-04-07] MEDS: FLOMAX PO SCH (10:19)
[2019-04-07] MEDS: NAMENDA PO SCH ×2 (10:19→20:31)
[2019-04-07] MEDS: PRILOSEC PO SCH (10:19)
[2019-04-07] MEDS: RAZADYNE PO SCH ×2 (10:20→20:31)
--- NOTE | 2019-04-07 19:08 | ECHO REPORT ---
ORDER DATE: 04/07/2019 MEASUREMENTS: Septal thickness 1.1, left ventricular internal diastole 5.6, posterior wall thickness 1.1, aortic root 4.1, left atrium 4.1. SUMMARY: 1. Technically difficult study due to limited acoustic window quality. 2. Intravenous echo contrast agent Optison was utilized to enhance endocardial definition. 3. Mild aortic valve sclerosis demonstrated with adequate opening on 2-dimensional images. Peak gradient across aortic valve is less than 10 mmHg. Mitral and tricuspid valves are without gross structural abnormality while pulmonic valve was not well demonstrated. There is trace tricuspid regurgitation and mild pulmonic insufficiency. The estimated systolic PA pressure by Doppler is 30 mmHg. Aortic root is mildly enlarged. 4. Normal left ventricular dimensions suggested. Estimated left ventricular ejection fraction appears to be at least 60%. No regional wall motion abnormality can be appreciated. Left atrium is borderline enlarged. Right atrium, right ventricle are normal in size with grossly preserved right ventricular systolic function. 5. No pericardial effusion. 6. Inferior vena cava not well demonstrated. cc: Darnell Barker MD
[2019-04-08] MEDS: SYNTHROID PO SCH (06:07)
[2019-04-08] MEDS: COLACE PO SCH ×2 (08:37→21:05)
[2019-04-08] MEDS: ELIQUIS PO SCH ×2 (08:38→21:06)
[2019-04-08] MEDS: NAMENDA PO SCH ×2 (08:39→21:06)
[2019-04-08] MEDS: VITAMIN D PO SCH (08:39)
[2019-04-08] MEDS: RAZADYNE PO SCH ×2 (08:39→21:05)
[2019-04-08] MEDS: SEROQUEL PO SCH (08:39)
[2019-04-08] MEDS: LASIX PO SCH (08:40)
[2019-04-08] MEDS: CORDARONE PO SCH (08:40)
[2019-04-08] MEDS: PRILOSEC PO SCH (08:40)
[2019-04-08] MEDS: FLOMAX PO SCH (08:40)
[2019-04-08] MEDS: COZAAR PO SCH (08:48)
--- NOTE | 2019-04-08 16:26 | PROGRESS NOTE ---
DATE: 04/08/2019 INTERVAL HISTORY: Patient with some slight airway noise, but denying dyspnea. Complaining of some mild nausea but no vomiting. He had previously had some diarrhea and muscle aches, but those are essentially resolved. No new complaints. No acute events overnight. REVIEW OF SYSTEMS: Twelve point review of systems negative except as per interval history. VITALS: T-max 99.7 degrees, pulse 67, respirations 20, blood pressure 158/80, O2 saturation 98% on room air. PHYSICAL EXAMINATION: General: No acute distress. Chronically ill appearing. HEENT: Normocephalic, atraumatic. Moist mucous membranes. Cardiovascular: Regular rate and rhythm. No murmurs noted. Pulmonary: Slight expiratory wheeze, mostly appears to be upper airway, but does have a little down in the lungs. Otherwise clear to auscultation. Abdomen: Soft, nontender, nondistended. Bowel sounds positive. Extremities: Peripheral pulses intact. No clubbing or cyanosis. Trace to 1+ edema improved from previous. Neurologic: Cranial nerves grossly intact other than mild difficulty hearing. Mild to moderate global weakness but no focal deficits. Psychiatric: Normal mood and affect. Awake, alert, oriented x3. Skin: No new appearing rashes or lesions noted. ASSESSMENT AND PLAN: 1. Possible acute on chronic diastolic congestive heart failure. Echo shows normal ejection fraction and no pulmonary hypertension but may have some aspect of diastolic congestive heart failure. Respiratory status good and lower extremity edema improved with diuresis. I suspect the majority of patient's symptoms are caused by a viral illness, possibly influenza. The patient with some gastrointestinal symptoms, significant respiratory symptoms as well as muscle aches most of that has improved at this point. All those are consistent with influenza, but way too late for Tamiflu at this point, so likely no point in checking it. Continue his regular p.o. Lasix and monitor. 2. Hypertension, occasional moderate elevations, but overall acceptable control on current regimen. 3. Hypothyroidism, continue home Synthroid. 4. Atrial fibrillation has been mostly normal sinus rhythm here. We will continue reduced Eliquis dose as he meets age and GFR criteria for reduced dosing. 5. Dementia pretty mild. He is answering questions appropriately and following commands well currently. 6. Chronic kidney disease 3. Exact baseline not entirely certain but fairly stable. Monitor DISPOSITION: Patient lives in assisted living. Medically not really anything else to do for him that requires hospitalization but he is fairly weak globally, so uncertain if the assisted living will take him back. We will have them evaluate him in the morning and see if he is able to go back to assisted living versus a short stay in rehab.
[2019-04-08] MEDS: DUONEB (A & A) INH PRN ×2 (16:48→22:24)
[2019-04-09] MEDS: DUONEB (A & A) INH PRN ×5 (05:02→19:35)
[2019-04-09] MEDS: SYNTHROID PO SCH (06:11)
[2019-04-09] MEDS: VITAMIN D PO SCH (10:18)
[2019-04-09] MEDS: COZAAR PO SCH (10:18)
[2019-04-09] MEDS: ZANTAC PO SCH (10:18)
[2019-04-09] MEDS: RAZADYNE PO SCH ×2 (10:18→21:41)
[2019-04-09] MEDS: SEROQUEL PO SCH (10:18)
[2019-04-09] MEDS: ELIQUIS PO SCH ×2 (10:18→21:41)
[2019-04-09] MEDS: CORDARONE PO SCH (10:19)
[2019-04-09] MEDS: LASIX PO SCH (10:19)
[2019-04-09] MEDS: FLOMAX PO SCH (10:19)
[2019-04-09] MEDS: COLACE PO SCH ×2 (10:19→21:41)
[2019-04-09] MEDS: NAMENDA PO SCH ×2 (10:19→21:41)
--- NOTE | 2019-04-09 15:12 | PROGRESS NOTE ---
DATE: 04/09/2019 INTERVAL HISTORY: The patient still reports some generalized weakness and malaise, but nausea improved. No new complaints. No acute events overnight. REVIEW OF SYSTEMS: Twelve point review of systems negative except as per interval history. VITALS: T-max 98.2 degrees, pulse 71 respirations 16, blood pressure 129/58, O2 saturation 95% on room air. PHYSICAL EXAMINATION: General: No acute distress. Vitals: As above. HEENT: Normocephalic, atraumatic. Moist mucous membranes. Pulmonary: No further wheezing. Largely clear to auscultation at this point. Abdomen: Soft, nontender, nondistended. Bowel sounds positive. Extremities: Peripheral pulses intact. No clubbing or cyanosis. Trace to 1+ edema, stable. Neurologic: Cranial nerves grossly intact aside from mild hearing difficulty. Mild global weakness but without focal deficits. Psychiatric: Normal mood and affect. Awake, alert, currently oriented x3. Skin: No new lesions noted. ASSESSMENT AND PLAN: 1. Possible acute on chronic diastolic congestive heart failure. Ejection fraction with normal ejection fraction and no significant pulmonary hypertension but thought to have some aspect of diastolic congestive heart failure. Respiratory status improved at this point and lower extremity edema improved with diuresis. I suspect a lot of patient's symptoms were related to viral illness, possibly influenza given previous report of muscle aches and gastrointestinal symptoms in addition to his respiratory issues. The patient still has some malaise and some occasional mild nausea as well as a nonproductive cough, but otherwise all his symptoms are improved. Continue p.o. Lasix and monitor. 2. Hypertension, reasonable control on current regimen. Monitor. 3. Hypothyroidism, continue home Synthroid. 4. Paroxysmal atrial fibrillation. It has been normal sinus rhythm here. Continue reduced dose Eliquis as he meets age and glomerular filtration rate criteria for reduced dosing. 5. Dementia mild. Patient answering questions, following commands appropriately. No hallucinations. 6. Chronic kidney disease 3. Exact baseline not absolutely certain but creatinine has been fairly stable here. We will recheck kidney function in the morning. DISPOSITION: The patient has been living in assisted living at this point. Medically stable. Assisted living has been contacted and is coming to evaluate him. If they accept the patient then will anticipate discharge back to assisted living. However, suspect he will be weak enough that they will not want to take him and then will pursue discharge to rehab. Physical therapy evaluation pending to assist with this.
[2019-04-10] MEDS: DUONEB (A & A) INH PRN ×2 (01:53→05:16)
[2019-04-10] MEDS: SYNTHROID PO SCH (06:19)
[2019-04-10 06:50] LABS: BASO# 0.03 X1000 (0.0-0.2); BASO% 0.5 % (0.0-0.8); EOS# 0.44 X1000 (0.0-0.7); EOS% 7.4 % (0.0-10.0); HEMOGLOBIN 12.1 g/dL (14.0-18.0); IMM GRAN# 0.02 X1000 (0.0-0.04); IMM GRAN% 0.3 % (0.0-0.5); LYMPH# 1.74 X1000 (1.2-3.4); LYMPH% 29.4 % (20.5-51.1); MCH 29.6 PG (27-31); MCV 95.4 FL (81-99); MONO% 11.8 % (1.7-9.3); MPV 12.1 FL (7.4-10.4); NEUT# 2.99 X1000 (1.4-6.5); NEUT% 50.6 % (42.2-75.2); PLT 125 X1000 (130-400); RBC 4.09 XMIL (4.7-6.1); RDW 13.3 % (11.5-14.5); WBC 5.92 X1000 (4.8-10.8)
[2019-04-10 07:29] LABS: CALCIUM 9.5 mg/dL (8.8-10.2); CREATININE 1.7 mg/dL (0.7-1.2); POTASSIUM 3.9 mmol/L (3.5-5.1)
[2019-04-10] MEDS: ELIQUIS PO SCH (08:10)
[2019-04-10] MEDS: FLOMAX PO SCH (08:11)
[2019-04-10] MEDS: COLACE PO SCH (08:11)
[2019-04-10] MEDS: CORDARONE PO SCH (08:11)
[2019-04-10] MEDS: NAMENDA PO SCH (08:11)
[2019-04-10] MEDS: LASIX PO SCH (08:11)
[2019-04-10] MEDS: VITAMIN D PO SCH (08:11)
[2019-04-10] MEDS: RAZADYNE PO SCH (08:11)
[2019-04-10] MEDS: COZAAR PO SCH (08:11)
[2019-04-10] MEDS: ZANTAC PO SCH (08:11)
[2019-04-10 11:12] VITALS: BP 160/77
[2019-04-10] MEDS: SEROQUEL PO SCH (14:37)
--- NOTE | 2019-04-10 14:39 | DISCHARGE SUMMARY ---
ADMISSION DATE: 04/06/2019 DISCHARGE DATE: 04/10/2019 DISCHARGE DIAGNOSES: 1. Acute on chronic diastolic heart failure. 2. Hypertension. 3. Hypothyroid. 4. Paroxysmal atrial fibrillation. Briefly, this is an 88-year-old male with history of atrial fibrillation, hypothyroid, diabetes, who comes in with shortness of breath. He is at assisted living. He does have some dementia. He had a syncopal episode. His proBNP was 2577 with an elevated creatinine. He was put on Lasix and I think improved somewhat. His echocardiogram showed an EF of 60%. No clear diastolic dysfunction. He was maintained on Lasix. PT was evaluated because he was very weak. There was concern over influenza, it was checked and it was negative. On the , he was felt stable to go home. Assisted living evaluated him and stated he could go home and we will pursue assisted living evaluation. DISCHARGE MEDICATIONS: Docusate 100 b.i.d., amiodarone 200 daily, Flomax 0.4 daily, Lasix he takes 80 daily, Dilantin 12 b.i.d., losartan 50 daily, memantine 5 b.i.d., Seroquel 12.5 daily, Synthroid 175 daily, Tylenol p.r.n., vitamin D3, Zantac and Eliquis 5 mg daily, which I think we will decrease to 2.5 daily and see how he does. Discharge condition is stable. Family is requesting something for cough. He is allergic to codeine, so we will give him some Tessalon Perles, see if that may help. He will need to follow up with his PCP. cc: Eris Guerrero MD
== END 2019-04-10 15:58 | DRG 291 ==
LOC: ED 15:06 → 3N 20:30 → SUATTDRO 20:30
PROVIDERS: ATTEND Internal Medicine